=== PATIENT | male | born 1950 | race Caucasian/White ===

== ENCOUNTER 2023-05-23 07:54 | Inpatient (IN) ==
[~2023-05-23 07:54] MED LIST: ceFAZolin 2000MG 2,000 MG/15 ML SYR IV SCH
--- NOTE | 2023-05-23 08:21 | Emergency Department Note ---
ED Provider Note History of Present Illness Chief Complaint: Leg Injury/Pain Stated Complaint: L LEG PAIN,RECENT SURG Time Seen by Provider: 05/23/23 08:02 Source: patient Mode of arrival: ambulatory Limitations: no limitations This patient is a 72-year-old male who presents to the emergency department for evaluation of left leg pain. Patient reports that he has had progressively worsening pain in the left leg. He has a history of peripheral arterial disease. He had an angiogram done by Dr. Baker last week. He saw Dr. Guerrero yesterday and they discussed scheduling him for surgery but he was told that in the meantime, if his pain worsens he should come to the ER immediately. He states that since the appointment yesterday, his pain has been worsening. He has severe pain whenever he walks or tries to do anything. Pain is throughout the entire left leg. He denies chest pain or shortness of breath. Home Medications Medication Instructions Recorded Confirmed Type Ca 600 mg-D3 20 mcg-mag oxide 50 1 tab PO 1XD 04/11/19 05/22/23 History ai-Jr-rbunzn-manganese-boron tablet (Calcium 600-D3 Plus (mag-zinc)) aspirin 81 mg tablet 81 mg PO DAILY 04/11/19 05/22/23 History hydrochlorothiazide 12.5 mg tablet 12.5 mg PO DAILY 04/11/19 05/23/23 History multivitamin (Daily Multiple 1 tab PO DAILY 04/11/19 05/22/23 History tablet) nifedipine 90 mg tablet,extended 90 mg PO DAILY 04/11/19 05/23/23 History release 24 hr omeprazole 20 mg capsule,delayed 20 mg PO DAILY 04/11/19 05/23/23 History release atorvastatin 10 mg tablet 0 mg PO QPM 11/08/21 05/23/23 History lisinopril 40 mg tablet 40 mg PO DAILY 05/23/22 05/23/23 History coenzyme Q10 100 mg capsule 100 mg PO BID 01/04/23 05/22/23 History alfuzosin 10 mg tablet,extended See Rx Instructions .Route 02/28/23 05/23/23 Rx release 24 hr .COMPLEX #90 tabs atenolol 50 mg tablet 50 mg PO DAILY #90 tabs 05/22/23 05/23/23 Rx fnbrdkca-ojf- 250 mg-dha 90 1 cap PO DAILY 05/22/23 05/22/23 History mg-epa 160 xk-rorv-rzho-zeax capsule (Ocuvite Adult 50 Plus) clopidogrel 75 mg tablet 0 mg PO DAILY 05/23/23 05/23/23 History Allergies Allergy/AdvReac Type Severity Reaction Status Date / Time BRETT Inhibitors Allergy Unknown Unknown Verified 05/22/23 09:53 bisoprolol Allergy Unknown Unknown Verified 05/22/23 09:53 hydrochlorothiazide Allergy Unknown Unknown Verified 05/22/23 09:53 Sulfa (Sulfonamide Allergy Unknown Unknown Verified 05/22/23 09:53 Antibiotics) furosemide [From Lasix] Allergy Unknown Verified 05/22/23 09:53 ezetimibe [From Zetia] AdvReac Intermediate Unknown Verified 05/22/23 09:53 fosinopril AdvReac Unknown GI UPSET Verified 05/22/23 09:53 oxycodone AdvReac Unknown FEELS Verified 05/22/23 09:53 STRANGE MONOPRIL-GI Allergy Unknown Unknown Uncoded 05/22/23 09:53 UPSET;OXYCODONE-"FEELS STRANGE" THIAZIDE Allergy Unknown Unknown Uncoded 05/22/23 09:53 Past Med/Surg History Medical History Carotid artery disease BPH with obstruction/lower urinary tract symptoms Presence of bare metal stent in left circumflex coronary artery Dyslipidemia Hypertension PAD (peripheral artery disease) CAD (coronary artery disease) Surgical History H/O knee surgery Family History Other Coronary heart disease Diabetes Hypertension Social History Smoking Status: Former smoker Tobacco Type: Cigarettes Second Hand Exposure: No; Do You Dip or Chew Tobacco: No; Hx Alcohol Use: Yes Alcohol type: beer Hx Substance Use: No Preferred Language: Yi Communication Ability: Effective Firmware Developer Required: No Beliefs That Will Affect Care: None marital status: Current Living Situation: Spouse current occupational status: retired Feels Safe at Home: Yes Physical Exam Vital Signs Vital Signs - 24 hr 05/23/23 07:57 05/23/23 08:25 05/23/23 08:45 Temperature 36.6 C Temperature Source Temporal Artery Scan Pulse Rate 56 L 54 L Pulse Rate [Apical] 50 L Pulse Rhythm [Apical] Regular Pulse Strength [Apical] Respiratory Rate 18 16 Respiratory Effort / Characteristics Non-Labored Spontaneous Respiratory Depth Normal Respiratory Pattern Blood Pressure 138/75 Blood Pressure [Left Arm] Blood Pressure [Right Arm] 144/75 H Blood Pressure Mean 96 Blood Pressure Mean [Left Arm] Blood Pressure Mean [Right Arm] 98 Blood Pressure Position [Left Arm] Pulse Oximetry 96 95 Oxygen Delivery Method Room Air Sepsis Recent Fever Within 48 Hours No Sepsis New/Unexplained Change in Mental Status N/A Sepsis Action Taken by Nursing No Action Required 05/23/23 10:00 05/23/23 12:10 05/23/23 12:27 Temperature 36.4 C L Temperature Source Oral Pulse Rate Pulse Rate [Apical] 44 L 50 L Pulse Rhythm [Apical] Regular Pulse Strength [Apical] Normal Respiratory Rate 18 18 Respiratory Effort / Characteristics Non-Labored Spontaneous Non-Labored Spontaneous Respiratory Depth Normal Normal Respiratory Pattern Regular Regular Blood Pressure Blood Pressure [Left Arm] 159/78 H Blood Pressure [Right Arm] Blood Pressure Mean Blood Pressure Mean [Left Arm] 105 Blood Pressure Mean [Right Arm] Blood Pressure Position [Left Arm] Semi-fowlers Pulse Oximetry 96 94 Oxygen Delivery Method Room Air Room Air Room Air Sepsis Recent Fever Within 48 Hours Sepsis New/Unexplained Change in Mental Status Sepsis Action Taken by Nursing VITALS: Vitals are noted on the nurse's note and reviewed by myself. GENERAL: This is a 72-year-old male, in no acute distress, well-developed well- nourished. HEART: Regular rate and rhythm without murmurs gallops or rubs. LUNGS: Clear to auscultation bilaterally without wheezes, rales or rhonchi. EXTREMITIES: Left foot is dusky compared to the right. Delayed capillary refill. Dorsalis pedis pulse is not palpable on exam, faint but palpable posterior tibial pulse. NEURO: Patient was alert and oriented to person place and time. Distal sensation intact. Course Administered Medications Cefazolin Sodium (Ancef 2000mg) 2,000 mg in 15 mls @ 3.75 mls/min IV PREOP JUMA; Protocol Stop: 05/23/23 18:00 Last Admin: 05/23/23 13:33 Dose: 3.75 mls/min Documented By: SMI Discontinued Medications Cefazolin Sodium (Cefazolin 330 Mg/Ml 1 Gm Vial) Confirm Administered Dose 990 mg .ROUTE .STK-MED ONE Stop: 05/23/23 12:44 Last Admin: 05/23/23 13:33 Dose: 990 mg Documented By: GRICEL Medical Decision Making Differential Diagnosis Differential diagnosis includes leg ischemia, claudication, DVT, superficial thrombosis, among others. Home Medications was personally reviewed by me Laboratory Data Attestation: I reviewed the patient's lab results. 05/23/23 08:32 05/23/23 09:46 Lab Results 05/23/23 05/23/23 05/23/23 Range/Units 08:26 08:30 08:32 WBC 7.92 (4.8-10.8) K/ul RBC 4.48 L (4.70-6.10) M/uL Hgb 14.6 (14.0-18.0) g/dl Hct 43.6 (42.0-52.0) % MCV 97.3 (80.0-100.0) fL MCH 32.6 (25.0-34.0) pg MCHC 33.5 (32.0-36.0) g/dL RDW Std Deviation 50.7 H (36.4-46.3) fL RDW Coeff of [place] 14.1 (11.5-14.5) % Plt Count 317 (130-400) K/uL MPV 9.9 (9.4-12.4) fL Immature Gran % (Auto) 0.6 % Neut % (Auto) 62.1 % Lymph % (Auto) 22.3 % Pershing % (Auto) 6.9 % Eos % (Auto) 6.6 % Baso % (Auto) 1.5 % Neut # (Auto) 4.91 (1.40-6.50) K/uL Lymph # (Auto) 1.77 (1.20-3.40) K/uL Pershing # (Auto) 0.55 (0.11-0.59) K/uL Eos # (Auto) 0.52 H (0.00-0.50) K/uL Baso # (Auto) 0.12 (0.00-0.20) K/uL Immature Gran # (Auto) 0.05 (0.01-0.20) K/uL PT Cancelled INR Cancelled APTT Cancelled PTT Ratio Cancelled Sodium 136 (136-145) mmol/L Potassium TNP Chloride 102 (98-107) mmol/L Carbon Dioxide 30 (21-32) mmol/L Anion Gap 4 (3-11) BUN 13 (6-23) mg/dl Creatinine 0.99 (0.6-1.4) mg/dl Est Cr Clr Drug Dosing 72.9 ml/min Est GFR ( Amer) 87.2 ml/min Est GFR (Non-Af Amer) 75.2 ml/min BUN/Creatinine Ratio 13.1 (10-20) Glucose 107 H (70-99(Fasting)) mg/dl Calcium 9.7 (8.6-10.3) mg/dl Total Bilirubin 1.0 (0.2-1.0) mg/dl AST TNP ALT 14 (7-52) U/L Alkaline Phosphatase 65 (34-104) U/L Total Protein 7.3 (6.0-8.3) gm/dl Albumin 4.3 (3.4-5.0) gm/dl Globulin 3.0 (2.5-4.0) gm/dl Albumin/Globulin Ratio 1.4 (0.9-2) Urine Color Yellow Urine Appearance Clear (Clear) Urine pH 7.5 (4.5-7.5) Ur Specific [place] 1.014 (1.000-1.030) Urine Protein Negative (Negative) Urine Glucose (UA) Negative (Negative) Urine Ketones Negative (Negative) Urine Blood Negative (Negative) Urine Nitrite Negative (Negative) Urine Bilirubin Negative (Negative) Urine Urobilinogen Negative (Negative) Ur Leukocyte Esterase Negative (Negative) Blood Type O Positive Antibody Screen NEGATIVE 05/23/23 Range/Units 09:46 WBC (4.8-10.8) K/ul RBC (4.70-6.10) M/uL Hgb (14.0-18.0) g/dl Hct (42.0-52.0) % MCV (80.0-100.0) fL MCH (25.0-34.0) pg MCHC (32.0-36.0) g/dL RDW Std Deviation (36.4-46.3) fL RDW Coeff of [place]ul[place] (11.5-14.5) % Plt Count (130-400) K/uL MPV (9.4-12.4) fL Immature Gran % (Auto) % Neut % (Auto) % Lymph % (Auto) % [place]hing % (Auto) % Eos % (Auto) % Baso % (Auto) % Neut # (Auto) (1.40-6.50) K/uL Lymph # (Auto) (1.20-3.40) K/uL [place]hing # (Auto) (0.11-0.59) K/uL Eos # (Auto) (0.00-0.50) K/uL Baso # (Auto) (0.00-0.20) K/uL Immature Gran # (Auto) (0.01-0.20) K/uL PT 11.1 INR 1.0 APTT 28.2 PTT Ratio 1.0 Sodium (136-145) mmol/L Potassium 4.1 Chloride (98-107) mmol/L Carbon Dioxide (21-32) mmol/L Anion Gap (3-11) BUN (6-23) mg/dl Creatinine (0.6-1.4) mg/dl Est Cr Clr Drug Dosing ml/min Est GFR ( Amer) ml/min Est GFR (Non-Af Amer) ml/min BUN/Creatinine Ratio (10-20) Glucose (70-99(Fasting)) mg/dl Calcium (8.6-10.3) mg/dl Total Bilirubin (0.2-1.0) mg/dl AST 15 ALT (7-52) U/L Alkaline Phosphatase (34-104) U/L Total Protein (6.0-8.3) gm/dl Albumin (3.4-5.0) gm/dl Globulin (2.5-4.0) gm/dl Albumin/Globulin Ratio (0.9-2) Urine Color Urine Appearance (Clear) Urine pH (4.5-7.5) Ur Specific [place] (1.000-1.030) Urine Protein (Negative) Urine Glucose (UA) (Negative) Urine Ketones (Negative) Urine Blood (Negative) Urine Nitrite (Negative) Urine Bilirubin (Negative) Urine Urobilinogen (Negative) Ur Leukocyte Esterase (Negative) Blood Type Antibody Screen Imaging Data Attestation: I personally reviewed and interpreted this imaging study as follows: Radiologist's Impression: Chest X-Ray 05/23/23 08:16 XR chest 1V portable CLINICAL HISTORY: preop TECHNIQUE: Single frontal radiograph of the chest was obtained. Comparison: None available at the time of this dictation. FINDINGS: No lines and tubes are seen. Calcified aortic knob is seen. The lungs are clear. No evidence of pleural effusion or pneumothorax. IMPRESSION: No acute chest disease. ACT 112: Negative or not required by law. Electronically signed by: Nathanael Griffin M.D. 05/23/2023 8:36 AM ECG Data Attestation: I personally reviewed and interpreted this ECG as follows: Indication: + other Rate (beats per minute): 50 Rhythm: + sinus bradycardia ECG Campo: + Normal ECG ST segments: + Normal ST segments ECG Findings: + Other (low voltage QRS) Change: no significant change MDM Narrative This patient is a 72-year-old male who presents to the emergency department for evaluation of worsening left leg pain and claudication. Patient has been evaluated as an outpatient and worked up for peripheral arterial disease/limb ischemia. Due to issues with insurance preauthorization, he was sent to the ED today so he can be admitted for surgery by Dr. Guerrero. Charge nurse did speak with Dr. Guerrero who requested preoperative testing be performed and that no medications be given. Work-up was ordered and performed in the ER. Patient was then taken to the OR by Dr. Guerrero for further management. Impression Ischemia of left lower extremity Discharge Plan Visit Data Chief Complaint: Leg Injury/Pain Stated Complaint: L LEG PAIN,RECENT SURG ED Provider: Raymond Fisher ED Midlevel Provider: Jess Chavez Discharge Problem: Ischemia of left lower extremity Discharge Instructions Interventions: ED Discharge Assessment Last Done: 05/23/23 12:10
--- NOTE | 2023-05-23 08:37 | XRay Report ---
XR chest 1V portable CLINICAL HISTORY: preop TECHNIQUE: Single frontal radiograph of the chest was obtained. Comparison: None available at the time of this dictation. FINDINGS: No lines and tubes are seen. Calcified aortic knob is seen. The lungs are clear. No evidence of pleur al effusion or pneumothorax. IMPRESSION: No acute chest disease. ACT 112: Negative or not required by law. Electronically signed by: Nathanael Griffin M.D. 05/23/2023 8:36 AM
[2023-05-23 08:53] LABS: Appearance Urine Clear (Clear); Bilirubin Urine Negative (Negative); Blood Urine Negative (Negative); Color Urine Yellow; Glucose Urine UA Negative (Negative); Ketones Urine Negative (Negative); Leukocyte Esterase Urine Negative (Negative); Nitrite Urine Negative (Negative); Protein Urine Negative (Negative); Specific Gravity Urine 1.014 (1.000-1.030); Urobilinogen Urine Negative (Negative); pH Urine 7.5 (4.5-7.5)
[2023-05-23 08:57] LABS: Basophils # (auto) 0.12 K/uL (0.00-0.20); Basophils % (auto) 1.5 %; Eosinophils # (auto) 0.52 K/uL (0.00-0.50); Eosinophils % (auto) 6.6 %; Hematocrit (blood only) 43.6 % (42.0-52.0); Hemoglobin 14.6 g/dl (14.0-18.0); Immature Granulocytes # (auto) 0.05 K/uL (0.01-0.20); Immature Granulocytes % (auto) 0.6 %; Lymphocytes # (auto) 1.77 K/uL (1.20-3.40); Lymphocytes % (auto) 22.3 %; Mean Corpuscular Hemoglobin 32.6 pg (25.0-34.0); Mean Corpuscular Hgb Conc 33.5 g/dL (32.0-36.0); Mean Corpuscular Volume 97.3 fL (80.0-100.0); Mean Platelet Volume 9.9 fL (9.4-12.4); Monocytes # (auto) 0.55 K/uL (0.11-0.59); Monocytes % (auto) 6.9 %; Neutrophils # (auto) 4.91 K/uL (1.40-6.50); Neutrophils % (auto) 62.1 %; Platelet Count 317 K/uL (130-400); RDW Coefficient of Variation 14.1 % (11.5-14.5); RDW Standard Deviation 50.7 fL (36.4-46.3); Red Blood Count 4.48 M/uL (4.70-6.10); White Blood Count 7.92 K/ul (4.8-10.8)
[2023-05-23 09:17] LABS: Alanine Aminotransferase 14 U/L (7-52); Albumin Globulin Ratio 1.4 (0.9-2); Albumin Level 4.3 gm/dl (3.4-5.0); Alkaline Phosphatase 65 U/L (34-104); Anion Gap 4 (3-11); BUN Creatinine Ratio 13.1 (10-20); Blood Urea Nitrogen 13 mg/dl (6-23); Calcium 9.7 mg/dl (8.6-10.3); Carbon Dioxide 30 mmol/L (21-32); Chloride 102 mmol/L (98-107); Creatinine Clr Calc Pharmacy 72.9 ml/min; Est GFR (African American) 87.2 ml/min; Est GFR (Non-African American) 75.2 ml/min; Glucose 107 mg/dl (70-99(Fasting)); Sodium 136 mmol/L (136-145); Total Protein 7.3 gm/dl (6.0-8.3)
--- NOTE | 2023-05-23 09:26 | History & Physical Bridge Note ---
Date of Service May 23, 2023 History & Physical Bridge Note I have examined the patient, reviewed the History & Physical and in the interval since the performance of the History & Physical I have noted the following changes of clinical significance: no changes noted
--- NOTE | 2023-05-23 09:26 | History & Physical Report ---
Date of Service May 23, 2023 History of Present Illness Primary Care Provider: Leo Ahmadi MD Chief Complaint rm# 6 here for consult for foreign object in right femoral artery after intervention Reason for Consultation New onset left leg claudication severe History of Present Illness I had the pleasure of seeing Mr. Romero today for evaluation of his left leg claudication. As you know he is a 72-year-old gentleman who had intervention of his right lower extremity. Subsequent to that he developed new onset claudication at less than 50 feet of his left calf. He underwent another arteriogram of his left lower extremity which showed a significant narrowing of his left common femoral artery. Angio-Seal plug was used at the intervention which involved entrance of his left common femoral artery. He did state that he had bruising present in the left thigh post procedure. Review of Systems 10 systems reviewed.. Other than the HPI there were no positive findings Physical Exam Vitals & Measurements Input and Output - Last 24 hours (Last 8 hours) No I/O Data Found: On exam he is awake alert oriented x3. He is in no apparent distress at rest. His blood pressure is 146/68. Radials and carotids are +2 bilaterally. Lungs are clear. Heart had a RRR. Abdomen is benign. Femorals are +2 bilaterally. There is pedal pulses palpated in the right lower extremity cannot appreciate pedal pulse in the left lower extremity. The right lower extremity had normal capillary refill. Capillary refill the left foot is slightly decreased. Left foot is cooler than the right. Neurologic exam is grossly intact motor and sensory function. 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 Assessment/Plan 1. Atherosclerosis of [place] arteries of extremities with rest pain, left leg At this point recommended surgical intervention for repairing the left common femoral artery. Patient understood the risks options benefits and agreed to have this procedure. Thank you very much for letting us participate in the care of this patient. Sincerely, Colleen Guerrero MD Problem List/Past Medical History Ongoing AAA (abdominal aortic aneurysm) (atherosclerosis) BPH with urinary obstruction CAD Claudication Colon polyp Erosive gastropathy GERD HTN (hypertension) Hyperlipidemia Impaired fasting glucose PVD (peripheral vascular disease) Squamous cell carcinoma in situ Historical ETOH abuse LFT's abnormal Panic attacks Procedure/Surgical History Angiocardiography (05/01/2023) Lithotripsy (01/27/2023) Other (01/27/2023) Shave biopsy and cauterization of skin (02/08/2021) Colonoscopy (12/17/2019) Duplex scan of lower limb arteries (02/22/2019) Upper GI endoscopy (11/09/2017) CT angiography-Abdomen and Pelvis with Bilateral lower extremity runoff (04/27/2016) Colonoscopy (11/07/2014) Hx of knee surgery (01/21/2013) Colonoscopy (10/08/2008) Right Knee Surgery = ACL Replacement Heart Stent Excision of pilonidal sinus Medications Home alfuzosin(alfuzosin 10 mg oral tablet, extended release), 10 mg= 1 tab, PO, Daily aspirin(aspirin 81 mg oral enteric coated tablet), 81 mg= 1 tab, PO, Daily atenolol(atenolol 50 mg oral tablet), 50 mg= 1 tab, PO, Daily atorvastatin(atorvastatin 10 mg oral tablet), See Instructions calcium and vitamin D combination(calcium (as carbonate)-vitamin D 600 mg-400 intl units oral tablet), See Instructions chondroitin/glucosamine/methylsulfonylmethane(Glucosamine & Chondroitin with MSM), 2 tab, PO, Daily clopidogrel(Plavix 75 mg oral tablet), 75 mg= 1 tab, PO, Daily hydroCHLOROthiazide(hydroCHLOROthiazide 12.5 mg oral tablet), 12.5 mg= 1 tab, PO, Daily, 3 refills lisinopril(lisinopril 40 mg oral tablet), See Instructions, 3 refills LORazepam(LORazepam 0.5 mg oral tablet), 0.5 mg= 1 tab, PO, Daily, PRN multivitamin(Multiple Vitamins oral tablet), 1 tab, PO, Daily multivitamin with minerals(Ocuvite oral tablet), 1 tab, PO, Daily NIFEdipine(NIFEdipine (Eqv-Procardia XL) 90 mg oral tablet, extended release), See Instructions omega-3 polyunsaturated fatty acids-ubiquinone(CoQmax [place] 100 mg oral capsule) omeprazole(omeprazole 20 mg oral delayed release tablet), 20 mg, PO, bid, 3 refills Allergies Lasix dehydration Monopril GI upset Zantac diarrhea Zetia joint pain Social History Smoking Status Never smoked cigarettes Alcohol - Low Risk Exercise - Regular exercise Exercise type:Walking, biking Tobacco - Low Risk Family History Diabetes: Mother and Sister. Heart attack: Brother. Heart disease: Mother, Father and Brother. Kidney disease: Brother. Throat cancer..: Sister. Health Status Family Member(s) Immunizations Vaccine Date Status influenza virus vaccine, inactivated 05/04/2023 Given influenza virus vaccine, inactivated 05/20/2022 Given SARS-CoV-2 mRNA (Pfizer 12+) bivalent 05/03/2022 Recorded Comments : 2022-05-20: Historical information-source unspecified pneumococcal 23-valent vaccine 06/10/2021 Given SARS-CoV-2 (COVID-19) mRNA BNT-162b2 vax 05/14/2021 Recorded Comments : 2022-05-20: Historical information-source unspecified SARS-CoV-2 (COVID-19) mRNA BNT-162b2 vax 11/05/2020 Recorded Comments : 2022-05-20: Historical information-source unspecified SARS-CoV-2 (COVID-19) mRNA BNT-162b2 vax 10/15/2020 Recorded Comments : 2022-05-20: Historical information-source unspecified influenza virus vaccine, inactivated 04/14/2020 Given influenza virus vaccine, inactivated 05/02/2019 Given zoster vaccine, inactivated 05/17/2018 Recorded influenza virus vaccine, inactivated 04/24/2018 Given zoster vaccine, inactivated 02/24/2018 Recorded influenza virus vaccine, inactivated 05/25/2017 Given influenza virus vaccine, inactivated 05/16/2016 Given pneumococcal 13-valent vaccine 06/24/2015 Given influenza virus vaccine, inactivated 05/05/2015 Given tetanus/diphtheria/pertuss, acel (Tdap) 06/23/2014 Given pneumococcal 23-valent vaccine 06/23/2014 Given influenza virus vaccine, inactivated 04/09/2014 Given influenza virus vaccine, inactivated 04/22/2013 Given influenza virus vaccine, inactivated 04/27/2012 Given influenza virus vaccine, H1N1 07/25/2009 Recorded Comments : 2022-05-20: Historical information-source unspecified tetanus toxoids-diphtheria, Td (Adult) 03/03/2004 Recorded tetanus toxoids-diphtheria, Td (Adult) 02/02/2004 Recorded tetanus toxoids-diphtheria, Td (Adult) 03/25/1996 Recorded Comments : 2022-05-20: Historical information-source unspecified Signature Line Electronic Signature on File Mc Guerrero MD Author Signature Dt/Tm: 05/22/2023 03:19 PM [employer] Dynamics Ax Developer Tyson Hernandez [facility] [place] [address], [address] [place] [address] EJS Result Type: .Outpt Ltr Date of Service: May 22, 2023 15:15 EST Authorization Status: Final Subject: Consult Note Author or Import Date: MD Guerrero Eugene J on May 22, 2023 15:19 EST Verified By: MD Guerrero Eugene J on May 22, 2023 15:19 EST Encounter info: [id number], [place] [id number], Clinic, 05/22/2023 - Allergies Allergy/AdvReac Type Severity Reaction Status Date / Time BRETT Inhibitors Allergy Unknown Unknown Verified 05/22/23 09:53 bisoprolol Allergy Unknown Unknown Verified 05/22/23 09:53 hydrochlorothiazide Allergy Unknown Unknown Verified 05/22/23 09:53 Sulfa (Sulfonamide Allergy Unknown Unknown Verified 05/22/23 09:53 Antibiotics) furosemide [From Lasix] Allergy Unknown Verified 05/22/23 09:53 ezetimibe [From Zetia] AdvReac Intermediate Unknown Verified 05/22/23 09:53 fosinopril AdvReac Unknown GI UPSET Verified 05/22/23 09:53 oxycodone AdvReac Unknown FEELS Verified 05/22/23 09:53 STRANGE MONOPRIL-GI Allergy Unknown Unknown Uncoded 05/22/23 09:53 UPSET;OXYCODONE-"FEELS STRANGE" THIAZIDE Allergy Unknown Unknown Uncoded 05/22/23 09:53 Home Medications Medication Instructions Recorded Confirmed Type Ca 600 mg-D3 20 mcg-mag oxide 50 1 tab PO 1XD 04/11/19 05/22/23 History md-Jt-tvxamz-manganese-boron tablet (Calcium 600-D3 Plus (mag-zinc)) aspirin 81 mg tablet 81 mg PO DAILY 04/11/19 05/22/23 History hydrochlorothiazide 12.5 mg tablet 12.5 mg PO DAILY 04/11/19 05/22/23 History multivitamin (Daily Multiple 1 tab PO DAILY 04/11/19 05/22/23 History tablet) nifedipine 90 mg tablet,extended 90 mg PO DAILY 04/11/19 05/22/23 History release 24 hr omeprazole 20 mg capsule,delayed 20 mg PO DAILY 04/11/19 05/22/23 History release atorvastatin 10 mg tablet 5 mg PO QPM 11/08/21 05/22/23 History lisinopril 40 mg tablet 40 mg PO DAILY 05/23/22 05/22/23 History coenzyme Q10 100 mg capsule 100 mg PO BID 01/04/23 05/22/23 History clopidogrel 75 mg tablet 75 mg PO DAILY #30 tabs 01/27/23 05/22/23 Rx alfuzosin 10 mg tablet,extended See Rx Instructions .Route 02/28/23 05/22/23 Rx release 24 hr .COMPLEX #90 tabs atenolol 50 mg tablet 50 mg PO DAILY #90 tabs 05/22/23 05/22/23 Rx vvyhzmjz-vbg-pymel3 250 mg-dha 90 1 cap PO DAILY 05/22/23 05/22/23 History mg-epa 160 wx-qpiq-vufz-zeax capsule (Ocuvite Adult 50 Plus) Past Med/Surg History Medical History Carotid artery disease BPH with obstruction/lower urinary tract symptoms Presence of bare metal stent in left circumflex coronary artery Dyslipidemia Hypertension PAD (peripheral artery disease) CAD (coronary artery disease) Surgical History H/O knee surgery Family History Other Coronary heart disease Diabetes Hypertension Social History Smoking Status: Former smoker Tobacco Type: Cigarettes Second Hand Exposure: No; Do You Dip or Chew Tobacco: No; Hx Alcohol Use: Yes Alcohol type: beer Hx Substance Use: No Preferred Language: Dutch Communication Ability: Effective Treadle Cut Off Saw Operator Required: No Beliefs That Will Affect Care: None marital status: Current Living Situation: Spouse current occupational status: retired Feels Safe at Home: Yes Results & Data Vital Signs (Past 12 Hours) Vital Signs Temp Pulse Pulse Resp BP BP Pulse Ox 05/23/23 08:45 50 L 16 144/75 H 95 05/23/23 08:25 54 L 05/23/23 07:57 36.6 C 56 L 18 138/75 96 O2 Del Method 05/23/23 08:45 Room Air 05/23/23 08:25 05/23/23 07:57
[2023-05-23 10:24] LABS: Potassium 4.1 mmol/L (3.5-5.1)
[2023-05-23 10:33] LABS: Partial Thromboplastin Time 28.2 Seconds (21.0-31.0); Prothrombin Time 11.1 Seconds (9.0-12.0)
--- NOTE | 2023-05-23 11:05 | Electrocardiogram Report ---
Test Reason : Blood Pressure : / mmHG Vent. Rate : 050 BPM Atrial Rate : 050 BPM P-R Int : 168 ms QRS Dur : 080 ms QT Int : 410 ms P-R-T Axes : -17 017 061 degrees QTc Int : 373 ms Sinus bradycardia Low voltage QRS Possible Old Septal infarct Abnormal ECG When compared with ECG of 04-FEB-2013 16:41, Borderline Criteria for Septal infarct is now Present Confirmed by Jb Morales ([id number]) on 05/23/2023 11:04:40 AM Referred By: REFERRED SELF Confirmed By:Jb Morales
--- NOTE | 2023-05-23 11:42 | Anesthesiology Consultation ---
Date of Service May 23, 2023 Assessment & Plan (1) Encounter for pre-operative examination: Chart Review Chart Review: Acceptable Risk for Surgery History Surgery Operation Date: 05/23/23 09:25 Proposed Procedures p Repair Left Common Femoral Artery - Mc Guerrero MD Height/Weight Height: 6 ft Weight: 89.3 kg Allergies Allergy/AdvReac Type Severity Reaction Status Date / Time BRETT Inhibitors Allergy Unknown Unknown Verified 05/22/23 09:53 bisoprolol Allergy Unknown Unknown Verified 05/22/23 09:53 hydrochlorothiazide Allergy Unknown Unknown Verified 05/22/23 09:53 Sulfa (Sulfonamide Allergy Unknown Unknown Verified 05/22/23 09:53 Antibiotics) furosemide [From Lasix] Allergy Unknown Verified 05/22/23 09:53 ezetimibe [From Zetia] AdvReac Intermediate Unknown Verified 05/22/23 09:53 fosinopril AdvReac Unknown GI UPSET Verified 05/22/23 09:53 oxycodone AdvReac Unknown FEELS Verified 05/22/23 09:53 STRANGE MONOPRIL-GI Allergy Unknown Unknown Uncoded 05/22/23 09:53 UPSET;OXYCODONE-"FEELS STRANGE" THIAZIDE Allergy Unknown Unknown Uncoded 05/22/23 09:53 Medications Home Medications Medication Instructions Recorded Confirmed Last Taken Ca 600 mg-D3 20 mcg-mag oxide 50 1 tab PO 1XD 04/11/19 05/22/23 04/30/23 vj-Vo-lqupgz-manganese-boron tablet (Calcium 600-D3 Plus (mag-zinc)) aspirin 81 mg tablet 81 mg PO DAILY 04/11/19 05/22/23 04/30/23 hydrochlorothiazide 12.5 mg tablet 12.5 mg PO DAILY 04/11/19 05/22/23 04/30/23 multivitamin (Daily Multiple 1 tab PO DAILY 04/11/19 05/22/23 04/30/23 tablet) nifedipine 90 mg tablet,extended 90 mg PO DAILY 04/11/19 05/22/23 04/30/23 release 24 hr omeprazole 20 mg capsule,delayed 20 mg PO DAILY 04/11/19 05/22/23 04/30/23 release atorvastatin 10 mg tablet 5 mg PO QPM 11/08/21 05/22/23 04/30/23 lisinopril 40 mg tablet 40 mg PO DAILY 05/23/22 05/22/23 04/30/23 coenzyme Q10 100 mg capsule 100 mg PO BID 01/04/23 05/22/23 04/30/23 clopidogrel 75 mg tablet 75 mg PO DAILY #30 tabs 01/27/23 05/22/23 05/18/23 alfuzosin 10 mg tablet,extended See Rx Instructions .Route 02/28/23 05/22/23 04/30/23 release 24 hr .COMPLEX #90 tabs atenolol 50 mg tablet 50 mg PO DAILY #90 tabs 05/22/23 05/22/23 Unknown cmwsbxam-upr-[id number] 250 mg-dha 90 1 cap PO DAILY 05/22/23 05/22/23 Unknown mg-epa 160 ne-ewra-iniz-zeax capsule (Ocuvite Adult 50 Plus) Past Medical History Medical History Carotid artery disease BPH with obstruction/lower urinary tract symptoms Presence of bare metal stent in left circumflex coronary artery Dyslipidemia Hypertension PAD (peripheral artery disease) CAD (coronary artery disease) Past Family History Family History Other Coronary heart disease Diabetes Hypertension Past Surgical History Surgical History H/O knee surgery Social History Smoking Status: Former smoker Do You Dip or Chew Tobacco: No Hx Alcohol Use: Yes Alcohol type: beer alcohol intake frequency: 0-2 drinks per day Hx Substance Use: No substance use type: does not use Physical Exam Vital Signs Last Vital Signs Temp 36.6 C 05/23/23 07:57 Pulse 44 L 05/23/23 10:00 Resp 18 05/23/23 10:00 BP 144/75 H 05/23/23 08:45 Pulse Ox 96 05/23/23 10:00 O2 Del Method Room Air 05/23/23 10:00 Testing Laboratory Results 05/23/23 08:32 05/23/23 09:46 PT 11.1 Seconds (9.0-12.0) 05/23/23 09:46 INR 1.0 (0.9-1.1) 05/23/23 09:46 APTT 28.2 Seconds (21.0-31.0) 05/23/23 09:46 Urine Color Yellow 05/23/23 08:30 Urine Appearance Clear (Clear) 05/23/23 08:30 Urine pH 7.5 (4.5-7.5) 05/23/23 08:30 Ur Specific [place] 1.014 (1.000-1.030) 05/23/23 08:30 Urine Protein Negative (Negative) 05/23/23 08:30 Urine Glucose (UA) Negative (Negative) 05/23/23 08:30 Urine Ketones Negative (Negative) 05/23/23 08:30 Urine Nitrite Negative (Negative) 05/23/23 08:30 Ur Leukocyte Esterase Negative (Negative) 05/23/23 08:30 Blood Type O Positive 05/23/23 08:26 Antibody Screen NEGATIVE 05/23/23 08:26 Laboratory Tests 12/04/20 05/23/23 05/23/23 00:00 08:32 08:32 Hgb 14.6 Plt Count 317 INR APTT Potassium Creatinine 0.99 Hemoglobin A1c 5.6 05/23/23 05/23/23 05/23/23 09:46 09:46 09:46 Hgb Plt Count INR 1.0 APTT 28.2 Potassium 4.1 Creatinine Hemoglobin A1c Electrocardiogram Date: 05/23/23 Findings: + SB @ (50) Echocardiogram Date: 11/01/21 EF: 60-65% LV Function: normal Other Findings: + LVH (mild) Valvular Disease: + no significant valvular disease
[2023-05-23] MEDS ORDERED: HEPARIN (PORCINE) 1000 UNIT/ML 10 ML (CATH LAB USE ONLY) ONE (12:43)
[2023-05-23] MEDS ORDERED: ceFAZolin 330 MG/ML 1 GM VIAL ONE (12:43)
[2023-05-23] MEDS ORDERED: LIDOCAINE 1% LOCAL 20 ML VIAL ONE (12:43)
[2023-05-23] MEDS ORDERED: BUPIVACAINE/EPINEPHRINE 0.5% MPF 1:200,000 30 ML VIAL ONE (12:43)
[2023-05-23] MEDS ORDERED: GELATIN SPONGE SZ 100 ONE (12:44)
[2023-05-23] MEDS ORDERED: THROMBIN FOR SOLN 20000 UNIT KIT ONE (12:44)
[2023-05-23] MEDS ORDERED: LACTATED RINGER'S 1,000 ML IV SCH (12:45)
[2023-05-23] MEDS ORDERED: ePHEDrine sulfate 50 MG/ML AMP IV PRN (12:49)
[2023-05-23] MEDS ORDERED: fentaNYL citrate PF 100 MCG/2 ML VIAL IV PRN (12:49)
[2023-05-23] MEDS ORDERED: ATROPINE SULFATE 0.1 MG/ML 10ML SYR IV PRN (12:49)
[2023-05-23] MEDS ORDERED: PROMETHAZINE HCL 12.5 MG in SODIUM CHLORIDE 0.9% 50 ML IV PRN (12:49)
[2023-05-23] MEDS ORDERED: fentaNYL citrate PF 100 MCG/2 ML VIAL ONE ×2 (12:50→16:06)
[2023-05-23] MEDS ORDERED: PROPOFOL IV EMULSION 10 MG/ML 20 ML VIAL IV ONE (12:50)
[2023-05-23] MEDS ORDERED: ROCURONIUM BROMIDE 10 MG/ML 5 ML VIAL IV ONE ×2 (12:50→14:27)
[2023-05-23] MEDS ORDERED: LIDOCAINE 2% 2 ML VIAL/AMP(20MG/ML) INFIL ONE (12:50)
[2023-05-23] MEDS ORDERED: ePHEDrine sulfate 50 MG/ML AMP ONE (15:20)
[2023-05-23] MEDS ORDERED: DEXAMETHASONE SOD INJ 4 MG/ML VIAL ONE (15:20)
[2023-05-23] MEDS ORDERED: HEPARIN SOD (PORCINE) 1000 UNIT/ML ONE (15:20)
[2023-05-23] MEDS ORDERED: PROTAMINE SULFATE 10 MG/ML 5 ML VIAL IV ONE (15:20)
[2023-05-23] MEDS ORDERED: ONDANSETRON INJ 2 MG/ML 2 ML VIAL ONE (15:20)
--- NOTE | 2023-05-23 16:07 | Operative Report ---
Post Operative Report Pre & Post Diagnosis Operation Date: 05/23/23 09:25 Pre-Op Diagnosis: Left Common Femoral Artery stenosis Post-Op Diagnosis: Left Common Femoral Artery stenosis I identified the patient and participated in the time-out.: Yes Procedure Operation Date: 05/23/23 09:25 Actual Procedures p Left Common Femoral Artery endarterectomy with bovine patch (Left) - Mc Guerrero MD Surgeon Mc Guerrero MD Web Analyst Giuseppe,PAC Estimated Blood Loss 425 Findings Consistent with Post-Op Diagnosis Specimens none Anesthesia Type General Complications none Disposition Accompanied Patient To Recovery: No Disposition: Recovery Room Indications This is a 72-year-old gentleman who developed sudden onset of claudication left lower extremity which developed after angio for his right lower extremity. The puncture site was closed with a Angio-Seal device. He underwent arteriography of the left lower extremity which showed a filling defect in the left common femoral artery and a very tight stenosis with surrounding thrombus. Repair was recommended. I have discussed the risks options and benefits of the procedure with the patient. The patient understands the risks options and benefits and agrees to the procedure. Description of Procedure The patient was taken the operating placed spine position. After general esthesia was accomplished the left leg was prepped draped in a sterile manner. The patient was identified and timeout was performed. Longitudinal groin incision was then made. This was carried down to where the common femoral artery was identified at the inguinal ligament. The dissection over the common femoral artery had a lot of inflammation present from the plug. We able to dissect out the common femoral artery as well as the superficial and profundofemoral arteries. The external iliac artery at the inguinal ligament was heavily calcified. Patient was heparinized at that time. We then placed a clamp on the distal external iliac artery just above the inguinal ligament and the profundofemoral artery and superficial femoral artery distally. We did arteriotomy in the common femoral artery which showed part of the Angio-Seal plug within the lumen of the artery with surrounding thrombus. This was all excised. There was a moderate amount of plaque present in the common femoral artery which was endarterectomized from the inguinal ligament down to the just above the bifurcation where nice breakoff point was accomplished. All loose plaque was then removed. Distally we used tacking stitches to tack the plaque to the arterial wall. We then closed the arteriotomy with a bovine patch in usual vascular fashion. There was a puncture in the back wall of the artery from most likely the arteriogram procedure which was closed with 6-0 Prolene's. Clamps and removed from the common femoral artery proximal distally. There were 3-4 areas of bleeding between his sutures were due to the thinness of the arterial wall. These were all repaired with interrupted 5-0 Prolene's. After that hemostasis was noted wound was irrigated with Ancef solution The wound was then closed with a running 2-0 Vicryl suture for the femoral sheath and a 3-0 Vicryl subcutaneous layer. [place] were used for the skin and a Prevena was used for the dressing.The patient left the operation room in satisfactory condition and tolerated the procedure well. All needle and sponge counts were correct at the end of the procedure. Kymberly Aceves Pac assisted due to lack of resident availability and was necessary for positioning, draping, retraction, wound closure deep layers, subcutaneous tissue, and skin closure and was necessary for assisting with the case. I attest to the content of the Intraoperative Record and any orders documented therein. Any exceptions are noted below.
--- NOTE | 2023-05-23 16:53 | Anesthesiology Progress Note ---
Date of Service May 23, 2023 Anesthesia Post Procedure Vital Signs Vital Signs: Temp Pulse Pulse Resp BP BP BP 05/23/23 16:30 60 15 127/63 05/23/23 16:20 62 16 119/61 119/61 05/23/23 16:13 36.6 C 62 14 114/64 114/64 05/23/23 12:27 36.4 C L 50 L 18 159/78 H 05/23/23 12:10 05/23/23 10:00 44 L 18 05/23/23 08:45 50 L 16 144/75 H 05/23/23 08:25 54 L 05/23/23 07:57 36.6 C 56 L 18 138/75 Pulse Ox O2 Del Method O2 Flow Rate 05/23/23 16:30 98 Oxymask 12 05/23/23 16:20 98 Oxymask 12 05/23/23 16:13 99 Oxymask 12 05/23/23 12:27 94 Room Air 05/23/23 12:10 Room Air 05/23/23 10:00 96 Room Air 05/23/23 08:45 95 Room Air 05/23/23 08:25 05/23/23 07:57 96 Pain Intensity Left Groin: Pain Intensity: 5 Transfer of Care Handoff Completed per policy Notes Mental Status: alert / awake / arousable Patient Amnestic to Procedure: Yes Nausea / Vomiting: adequately controlled Pain: adequately controlled Airway Patency, RR, SpO2: stable & adequate BP & HR: stable & adequate Hydration State: stable & adequate Anesthetic Complications: no major complications apparent and Pt Satisfied with anesthetic care Notes: pt c/o of chest pressure. obtained 12 lead ekg that was unremarkable. pt reports chest pressure that is relieved by deep inspiration and is resolving spontaneously. denies chest pain, nausea, radiation of symptoms to ex tremities/neck. low suspicion for cardiac origin of symptoms at this time.
[2023-05-23] MEDS ORDERED: HYDROCODONE/ACETAMOPHEN 5/325MG TAB PO PRN (17:56)
[2023-05-23] MEDS: LACTATED RINGER'S 1,000 ML IV SCH (18:17)
[2023-05-23 18:53] LABS: Hematocrit (blood only) 36.9 % (42.0-52.0); Hemoglobin 12.8 g/dl (14.0-18.0); Mean Corpuscular Hemoglobin 32.3 pg (25.0-34.0); Mean Corpuscular Hgb Conc 34.7 g/dL (32.0-36.0); Mean Corpuscular Volume 93.2 fL (80.0-100.0); Mean Platelet Volume 10.5 fL (9.4-12.4); Platelet Count 301 K/uL (130-400); RDW Coefficient of Variation 13.9 % (11.5-14.5); RDW Standard Deviation 48.1 fL (36.4-46.3); Red Blood Count 3.96 M/uL (4.70-6.10); White Blood Count 11.72 K/ul (4.8-10.8)
[2023-05-23 19:13] LABS: Basophils # (auto) 0.05 K/uL (0.00-0.20); Basophils % (auto) 0.4 %; Eosinophils # (auto) 0.04 K/uL (0.00-0.50); Eosinophils % (auto) 0.3 %; Immature Granulocytes # (auto) 0.11 K/uL (0.01-0.20); Immature Granulocytes % (auto) 0.9 %; Lymphocytes # (auto) 0.65 K/uL (1.20-3.40); Lymphocytes % (auto) 5.5 %; Monocytes # (auto) 0.15 K/uL (0.11-0.59); Monocytes % (auto) 1.3 %; Neutrophils # (auto) 10.72 K/uL (1.40-6.50); Neutrophils % (auto) 91.6 %
[2023-05-23] MEDS ORDERED: NON-FORMULARY MEDICATION (Coenzyme Q10 100 mg capsule) PO SCH (21:00)
[2023-05-23] MEDS: ATORVASTATIN 10 MG TAB PO SCH (21:08)
[2023-05-23] MEDS: ceFAZolin 2000MG 2,000 MG/15 ML SYR IV SCH (21:09)
[2023-05-24] MEDS: LACTATED RINGER'S 1,000 ML IV SCH ×2 (01:59→10:12)
[2023-05-24] MEDS: ceFAZolin 2000MG 2,000 MG/15 ML SYR IV SCH (05:41)
[2023-05-24 06:01] LABS: Basophils # (auto) 0.01 K/uL (0.00-0.20); Basophils % (auto) 0.1 %; Hematocrit (blood only) 33.5 % (42.0-52.0); Hemoglobin 11.1 g/dl (14.0-18.0); Immature Granulocytes # (auto) 0.07 K/uL (0.01-0.20); Immature Granulocytes % (auto) 0.7 %; Lymphocytes # (auto) 1.01 K/uL (1.20-3.40); Lymphocytes % (auto) 9.5 %; Mean Corpuscular Hemoglobin 31.8 pg (25.0-34.0); Mean Corpuscular Hgb Conc 33.1 g/dL (32.0-36.0); Mean Platelet Volume 10.2 fL (9.4-12.4); Monocytes # (auto) 0.47 K/uL (0.11-0.59); Monocytes % (auto) 4.4 %; Neutrophils # (auto) 9.03 K/uL (1.40-6.50); Neutrophils % (auto) 85.3 %; Platelet Count 282 K/uL (130-400); RDW Standard Deviation 49.3 fL (36.4-46.3); Red Blood Count 3.49 M/uL (4.70-6.10); White Blood Count 10.59 K/ul (4.8-10.8)
--- NOTE | 2023-05-24 08:12 | Electrocardiogram Report ---
Test Reason : Blood Pressure : / mmHG Vent. Rate : 061 BPM Atrial Rate : 061 BPM P-R Int : 162 ms QRS Dur : 088 ms QT Int : 438 ms P-R-T Axes : -11 021 065 degrees QTc Int : 440 ms Poor data quality, interpretation may be adversely affected Sinus rhythm with Premature atrial complexes Possible Old Anteroseptal infarct (cited on or before 23-MAY-2023) Abnormal ECG When compared with ECG of 23-MAY-2023 08:45, QT has lengthened Confirmed by Jb Morales ([id number]) on 05/24/2023 8:12:02 AM Referred By: REFERRED SELF Confirmed By:Jb Morales
[2023-05-24] MEDS: lisinopril 40 MG TAB PO SCH (08:39)
[2023-05-24] MEDS: ASPIRIN 81 MG ECTAB PO SCH (08:39)
[2023-05-24] MEDS: ATENOLOL 50 MG TABLET PO SCH (08:40)
[2023-05-24] MEDS: CLOPIDOGREL BISULFATE 75 MG TAB PO SCH (08:40)
[2023-05-24] MEDS: PANTOprazole 40 MG TAB PO SCH (08:40)
[2023-05-24] MEDS: hydroCHLOROthiazide 25 MG TAB PO SCH (08:40)
[2023-05-24] MEDS: NIFEdipine EXTENDED REL 30 MG TABCR PO SCH (08:41)
[2023-05-24] MEDS: TAMSULOSIN HCL 0.4 MG CAP PO SCH (08:41)
[2023-05-24] MEDS ORDERED: POLYETHYLENE (MIRALAX) 17 GM PACK PO PRN (13:54)
--- NOTE | 2023-05-24 14:06 | Surgery Progress Note ---
Date of Service May 24, 2023 Assessment & Plan (1) Ischemia of left lower extremity: Plan: Pt doing well s/p LLE common femoral endarterectomy with bovine patch. Taking PO well, feeling mildly constipated, will add colace and miralax PRN. Hgb 11 today, 14 preop. Hgb/Hct ordered by Dr Baker. Pt asymptomatic. VSS, pt active. Increase activity. Pt with questions regarding his procedure and his incisional vac. All questions answered. Pt ok for d/c from vascular surgery standpoint. Will see in office in 2 weeks for staple removal. Admission and Anticipated Discharge Date Admission Date: May 23, 2023 Subjective 72 yo m POD #1 after L common femoral endarterectomy with bovine patch, seen in f/u today. Pt states he is feeling a little tired, and is mildly constipated. Otherwise, his pain is under control and has been moving around the room and taking PO well. States his L foot feels significantly improved since surgery. No other new complaints. Review of Systems Review of Systems: All systems reviewed & are unremarkable except as noted in HPI & below Physical Exam Constitutional: WD/WN, vitals as above cooperative and comfortable; not in distress Cardiovascular: Vessels: posterior tibial pulses present (+1 LLE) and dorsalis pedis pulses present (Dopplerable LLE); + abnormal peripheral pulses Extremities: normal capillary refill Skin: + incision (L groin incision with preven a vac in place, working appropriately. ) Mild local soft edema, old ecchymosis noted Results & Data Vital Signs (Past 12 Hours) Vital Signs Temp Pulse Resp BP BP Pulse Ox O2 Del Method 05/24/23 09:00 Room Air 05/24/23 07:09 36.6 C 62 18 137/56 L 95 Room Air 05/24/23 02:10 36.5 C 69 16 143/70 H 94 Room Air
[2023-05-24 14:42] LABS: Hematocrit (blood only) 33.9 % (42.0-52.0); Hemoglobin 11.6 g/dl (14.0-18.0)
--- NOTE | 2023-05-24 16:57 | Cardiology Progress Note ---
Date of Service May 24, 2023 Assessment & Plan (1) PAD (peripheral artery disease): Plan: Post endarterectomy and patch repair of left LIQUOR BRIDGE OPERATOR stenosis post closure device Prior bilateral SFA endovascular intervention 2. Postop anemia 3. Coronary artery disease 4. Hypertension 5. Dyslipidemia Stable following LIQUOR BRIDGE OPERATOR endarterectomy yesterday. Distal left lower extremity appears well-perfused Pain reasonably controlled Repeat hemoglobin stable Continue to monitor overnight. Repeat hemoglobin in a.m. Assuming stable likely discharge tomorrow morning. Appreciate assistance from vascular surgery team. Follow-up with surgery to be arranged. Admission and Anticipated Discharge Date Admission Date: May 23, 2023 Subjective Seen this afternoon. Patient looks comfortable sitting up in chair. Pain reasonably controlled. Wound VAC in place. Reports some shortness of breath walking to bathroom. States leg downstream from surgical site feels different, warmer. Review of Systems Review of Systems: All systems reviewed & are unremarkable except as noted in HPI & below Physical Exam Physical Exam: General: Comfortable HEENT: Sclerae anicteric Lungs: Clear to auscultation bilaterally Cardiac: Regular rate and rhythm Vascular: 2+ radial, Left LIQUOR BRIDGE OPERATOR VAC in place. No surrounding erythema/induration. Left foot warm, intact capillary refill, diminished DP/PT 2+ right LIQUOR BRIDGE OPERATOR Abdomen: Soft, nontender Extremities: Well perfused, no peripheral edema Neuro: Nonfocal Psych: Alert orient x3, normal affect and mood Results & Data Vital Signs (Past 12 Hours) Vital Signs Temp Pulse Resp BP Pulse Ox O2 Del Method 05/24/23 15:27 97.5 F L 55 L 18 122/66 96 Room Air 05/24/23 09:00 Room Air 05/24/23 07:09 97.9 F 62 18 137/56 L 95 Room Air PG Care Time/CCT Total # of Minutes Spent Total Time Spent with Patient: Total time spent is greater than 50% in coordination of care (as documented) at patient's floor/unit and/or counseling patient: Coding Level of Care Code 66349 SUB INP/OBS CARE 3/50MIN Diagnoses PAD (peripheral artery disease) I73.9
[2023-05-24] MEDS: DOCUSATE SODIUM 100 MG CAP PO SCH (20:54)
[2023-05-24] MEDS: traMADol HCL 50 MG TABLET PO PRN (20:54)
[2023-05-24] MEDS: ATORVASTATIN 10 MG TAB PO SCH (20:54)
[2023-05-25] MEDS: traMADol HCL 50 MG TABLET PO PRN (05:51)
[2023-05-25] MEDS: DOCUSATE SODIUM 100 MG CAP PO SCH (08:14)
[2023-05-25] MEDS: TAMSULOSIN HCL 0.4 MG CAP PO SCH (08:15)
[2023-05-25] MEDS: ATENOLOL 50 MG TABLET PO SCH (08:15)
[2023-05-25] MEDS: ASPIRIN 81 MG ECTAB PO SCH (08:15)
[2023-05-25] MEDS: NIFEdipine EXTENDED REL 30 MG TABCR PO SCH (08:15)
[2023-05-25] MEDS: CLOPIDOGREL BISULFATE 75 MG TAB PO SCH (08:15)
[2023-05-25] MEDS: lisinopril 40 MG TAB PO SCH (08:16)
[2023-05-25] MEDS: hydroCHLOROthiazide 25 MG TAB PO SCH (08:16)
[2023-05-25] MEDS: PANTOprazole 40 MG TAB PO SCH (08:17)
--- NOTE | 2023-05-26 22:54 | Discharge Summary ---
Date of Service May 26, 2023 Admission HPI Per Admitting Provider Mr. Romero is a 72-year-old gentleman who had intervention of his right lower extremity. Subsequent to that he developed new onset claudication at less than 50 feet of his left calf. He underwent another arteriogram of his left lower extremity which showed a significant narrowing of his left common femoral artery. Angio-Seal plug was used at the intervention which involved entrance of his left common femoral artery. He did state that he had bruising present in the left thigh post procedure. Discharge Data Procedures Performed Operation Date: 05/23/23 09:25 Actual Procedures p Left Common Femoral Artery endarterectomy with bovine patch (Left) - Mc Guerrero MD Hospital Course (1) PAD (peripheral artery disease): Post endarterectomy and patch repair of left LOG CUTTER stenosis post closure device Prior bilateral SFA endovascular intervention 2. Postop anemia 3. Coronary artery disease 4. Hypertension 5. Dyslipidemia Patient underwent LT LOG CUTTER closure device removal/endarterectomy and patch repair by Dr. Guerrero on 05/23/2023. Procedure uncomplicated. Admitted to med/surg service for observation. Post op mild anemia with drop in Hb from 14.6 down to 11.6. On day of discharge up walking in halls. Incisional wound vac in place. Pain reasonably controlled on tramadol. Discharged to home on prior DAPT with ASA and clopidogrel. Will follow-up with Dr. Guerrero in 2 weeks for wound check. Follow-up Dr. Baker for repeat arterial duplex in June. Plan Home Medications Ca 600 mg-D3 20 mcg-mag oxide 50 ew-Ia-cgfryi-manganese-boron tablet (Calcium 600-D3 Plus (mag-zinc)) 1 tab PO 1XD 04/11/19 [History Confirmed 05/22/23] aspirin 81 mg tablet 81 mg PO DAILY 04/11/19 [History Confirmed 05/22/23] hydrochlorothiazide 12.5 mg tablet 12.5 mg PO DAILY 04/11/19 [History Confirmed 05/23/23] multivitamin (Daily Multiple tablet) 1 tab PO DAILY 04/11/19 [History Confirmed 05/22/23] nifedipine 90 mg tablet,extended release 24 hr 90 mg PO DAILY 04/11/19 [History Confirmed 05/23/23] omeprazole 20 mg capsule,delayed release 20 mg PO DAILY 04/11/19 [History Confirmed 05/23/23] atorvastatin 10 mg tablet 0 mg PO QPM 11/08/21 [History Confirmed 05/23/23] lisinopril 40 mg tablet 40 mg PO DAILY 05/23/22 [History Confirmed 05/23/23] coenzyme Q10 100 mg capsule 100 mg PO BID 01/04/23 [History Confirmed 05/22/23] alfuzosin 10 mg tablet,extended release 24 hr See Rx Instructions .Route .COMPLEX #90 tabs 02/28/23 [Rx Confirmed 05/23/23] atenolol 50 mg tablet 50 mg PO DAILY #90 tabs 05/22/23 [Rx Confirmed 05/23/23] ntrkakbj-snc- 250 mg-dha 90 mg-epa 160 ei-numc-bhyk-zeax capsule (Ocuvite Adult 50 Plus) 1 cap PO DAILY 05/22/23 [History Confirmed 05/22/23] clopidogrel 75 mg tablet 0 mg PO DAILY 05/23/23 [History Confirmed 05/23/23] docusate sodium 100 mg capsule 100 mg PO BID 30 days #60 caps 05/25/23 [Rx] polyethylene glycol 3350 17 gram oral powder packet (Miralax) 17 g PO DAILY PRN constipation 7 days #7 ea 05/25/23 [Rx] tramadol 50 mg tablet 50 mg PO Q6H PRN pain #20 tabs 05/25/23 [Rx] Coding Level of Care Code 13936 IN/OBS DISCH 30 MIN/LESS Diagnoses PAD (peripheral artery disease) I73.9
--- NOTE | 2023-05-30 20:36 | Coding Query ---
ANEMIA To promote full compliance with coding requirements relating to patient care, physician participation is requested in all cases of medical biller coder uncertainty. Please assist us with the question(s) below: Coding Question(s): The record reflects the following clinical findings: If these findings are indicative of anemia, please specify the known or suspected type by placing an "X" within the parenthesis (x). If other, please document type. Examples are: ( ) Acute blood loss anemia ( ) Acute Postoperative blood loss anemia ( ) Acute postoperative anemia due to dilutional fluids ( ) Chronic blood loss anemia ( ) Anemia of chronic disease Thank you Dianelys DODD
== END 2023-05-25 14:00 | disposition home or self-care (01) | DRG 254 ==
LOC: ED 07:54 → OR 12:10 → 3N 12:20 → OR 12:24

== ENCOUNTER 2023-06-03 05:10 | Inpatient (IN) ==
[2023-06-03 06:04] LABS: Appearance Urine Clear (Clear); Basophils # (auto) 0.04 K/uL (0.00-0.20); Basophils % (auto) 0.5 %; Bilirubin Urine Negative (Negative); Blood Urine Negative (Negative); Color Urine Yellow; Eosinophils # (auto) 0.02 K/uL (0.00-0.50); Eosinophils % (auto) 0.3 %; Glucose Urine UA Negative (Negative); Hematocrit (blood only) 34.2 % (42.0-52.0); Hemoglobin 11.8 g/dl (14.0-18.0); Immature Granulocytes # (auto) 0.09 K/uL (0.01-0.20); Immature Granulocytes % (auto) 1.1 %; Ketones Urine Trace (Negative); Leukocyte Esterase Urine Negative (Negative); Lymphocytes # (auto) 0.82 K/uL (1.20-3.40); Lymphocytes % (auto) 10.3 %; Mean Corpuscular Hemoglobin 32.3 pg (25.0-34.0); Mean Corpuscular Hgb Conc 34.5 g/dL (32.0-36.0); Mean Corpuscular Volume 93.7 fL (80.0-100.0); Monocytes % (auto) 10.1 %; Neutrophils # (auto) 6.18 K/uL (1.40-6.50); Neutrophils % (auto) 77.7 %; Nitrite Urine Negative (Negative); Platelet Count 312 K/uL (130-400); Protein Urine Negative (Negative); RDW Coefficient of Variation 13.9 % (11.5-14.5); RDW Standard Deviation 47.3 fL (36.4-46.3); Red Blood Count 3.65 M/uL (4.70-6.10); Specific Gravity Urine 1.017 (1.000-1.030); Urobilinogen Urine Negative (Negative); White Blood Count 7.95 K/ul (4.8-10.8)
[2023-06-03] MEDS ORDERED: KETOROLAC TROMETHAMINE 15 MG/ML VIAL IV STA (06:06)
[2023-06-03 06:21] LABS: Albumin Level 4.1 gm/dl (3.4-5.0); BUN Creatinine Ratio 11.4 (10-20); Bilirubin Direct 0.1 mg/dl (0-0.2); Bilirubin,Total 0.9 mg/dl (0.2-1.0); Calcium 9.3 mg/dl (8.6-10.3); Creatinine Clr Calc Pharmacy 82.1 ml/min; Est GFR (African American) 98.8 ml/min; Est GFR (Non-African American) 85.2 ml/min; Magnesium 1.6 mg/dl (1.7-2.4); Potassium 3.7 mmol/L (3.5-5.1); Total Protein 7.1 gm/dl (6.0-8.3)
[2023-06-03] MEDS ORDERED: MAGNESIUM SULFATE / D5W 1 GM/100 ML BAG IV STA (06:42)
[2023-06-03] MEDS ORDERED: ACETAMINOPHEN 1,000 MG/100 ML VIAL IV STA (06:58)
[2023-06-03] MEDS ORDERED: SODIUM CHLORIDE 0.9% 500 ML IV ONE (06:58)
[2023-06-03] MEDS ORDERED: IPRATROPIUM BROMIDE/ALBUTEROL respimat INH INH STA (06:58)
--- NOTE | 2023-06-03 07:04 | Emergency Department Note ---
Impression & Plan COVID-19, Myocarditis, Elevated troponin, Hyponatremia ED Provider Note NAME: JOANN BUTLER AGE: 72 SEX: M ARRIVES VIA: Walk-In INFORMANT: Patient ED PROVIDER(S): Triston Garrett MD CHIEF COMPLAINT: Covid, chest pain PLAN: Disposition: Admit MEDICAL DECISION MAKING: The patient is a pleasant 72-year-old gentleman with a past medical history of CAD, PAD, hypertension, hyperlipidemia who presents to emergency department via walk-in accompanied by his for evaluation of worsening cough, congestion and chest pain over the past several days where he felt an acute worsening yesterday with onset of constant left-sided chest pain that is worse when he breathes and coughs that has persisted. The patient ports he tested positive for COVID-19 on a home test yesterday. He denies nausea, vomiting or diarrhea. The patient is status post left FINISHER DENTURE closure device removal/endarterectomy and patch repair by Dr. Guerrero on 05/23. The patient is on aspirin and Plavix. Critical pathways ordered initially on arrival. On my evaluation the patient is fatigued appearing but no acute distress, afebrile blood pressure 140s/70s and vital signs otherwise stable. O2 saturation is 95% on room air. EKG does not demonstrate overt ST elevation or depression. Chest x-ray negative for acute cardiopulmonary process. WBC and platelets within normal limits. H/H is similar to recent values. Chemistry without metabolic acidosis. Sodium 129 in setting of decreased oral intake. Magnesium 1.6 with IV repletion provided. Lactic acid is within normal limits at 1.5. LFTs with AST mildly elevated 48, nonspecific. High-sensitivity troponin initially 7700. BNP is 878. Procalcitonin is undetectable. UA without evidence of infection. Patient's COVID-19 PCR confirms a positive infection. CTA of the chest was performed and within limitations of motion artifact no evidence of PE or acute consolidative process. Upon reevaluation the patient did report some improvement following gentle IV fluid hydration, Toradol, APAP, Combivent inhaler. Given negative CT of the chest and pattern of symptoms which are atypical and constant without overt ischemia on EKG suspect likely myocarditis. Aspirin ordered out of caution. Case was discussed with ID cardiology, Dr. Morales. Appreciate consultation recommendations. Agrees that troponin elevation and symptoms are not suggestive of ACS at this time and likely related to myocarditis in the setting of his acute COVID-19 infection. Agrees that heparin can be deferred at this time. Recommends continued supportive care and will need continued trending of his troponin and echocardiogram to assess his cardiac function. Patient is agreement with plan for admission. Case was discussed with Dr. Grant, [facility] hospitalist, who will evaluate the patient for admission. Triage Nursing notes reviewed and agree them. Prior/external medical records reviewed Vital Signs: reviewed Differential diagnosis: Cardiac ischemia, aortic dissection, pulmonary embolism, pneumothorax, pneumonia, pericarditis, myocarditis, esophageal rupture, GERD, cholecystitis, pancreatitis, musculoskeletal, as well as other pathologies. ER treatment provided: See below. Diagnostics interpreted by me: ECG: Sinus rhythm with marked sinus arrhythmia, 77 bpm, no ectopy, no overt ST elevation or depression, QTc 414, QRS 76. Artifact noted Cardiac Monitoring: An order for continuous cardiac monitoring was placed and demonstrated Sinus rhythm with marked sinus arrhythmia, 77 bpm, Laboratory studies: See below Imaging studies: See below Consultation(s): Case was discussed with Dr. Grant [facility] hospitalist, who will evaluate the patient for admission. HPI: The patient is a pleasant 72-year-old gentleman with a past medical history of CAD, PAD, hypertension, hyperlipidemia who presents to emergency department via walk-in accompanied by his for evaluation of worsening cough, congestion and chest pain over the past several days where he felt an acute worsening yesterday with onset of constant left-sided chest pain that is worse when he breathes and coughs that has persisted. The patient ports he tested positive for COVID-19 on a home test yesterday. He denies nausea, vomiting or diarrhea. The patient is status post left FINISHER DENTURE closure device removal/endarterectomy and patch repair by Dr. Guerrero on 05/23. The patient is on aspirin and Plavix. ROS: See above HPI for pertinent positives & negatives. A total of 10 systems reviewed and were otherwise negative. VITALS:See Below PHYSICAL EXAMINATION: GENERAL: Awake, alert, fatigued-appearing, in no distress HENT: Normocephalic, atraumatic. Oropharynx with dry mucous membranes and otherwise unremarkable. EYES: Normal conjunctiva. Sclera non-icteric. NECK: Supple. No nuchal rigidity. FROM. No JVD. RESPIRATORY: Intermittent wheezes of bilateral lung noble and otherwise clear to auscultation. CARDIAC: Regular rate, normal rhythm. Extremities warm and well perfused. Pulses equal. ABDOMEN: Soft, non-distended. No tenderness to palpation. No rebound or guarding. No masses. RECTAL: Deferred. MUSCULOSKELETAL: Chest examination reveals no tenderness. The back is symmetrical on inspection without obvious abnormality. There is no CVA tenderness to palpation. No joint edema. LOWER EXTREMITIES: Calves are equal size bilaterally and non-tender. No edema. No discoloration. NEURO: Normal sensorium. No sensory or motor deficits noted. SKIN: No rash or jaundice noted. ED COURSE: Critical Care: I have personally spent greater than 35 minutes of critical care time in the direct management of this patient. This includes bedside care, interpretation of diagnostic studies, and testing, discussion with consultants, patient, and family members, and other required patient management activities. This 35 minutes is in excess of all separately billable procedures. Triston Garrett MD Past Med/Surg History Medical History AAA (abdominal aortic aneurysm) Male erectile disorder of organic origin Former smoker Esophageal reflux Cerebrovascular disease Arterial insufficiency of lower extremity Carotid artery disease BPH with obstruction/lower urinary tract symptoms Presence of bare metal stent in left circumflex coronary artery Dyslipidemia Hypertension PAD (peripheral artery disease) CAD (coronary artery disease) Surgical History H/O knee surgery Family History Other Coronary heart disease Diabetes Hypertension Social History Smoking Status: Former smoker Tobacco Type: Cigarettes and Smokeless Tobacco (Dip or Chew) Second Hand Exposure: No; Do You Dip or Chew Tobacco: No; Tobacco Cessation Education Requested by Patient: No Hx Alcohol Use: Yes Alcohol type: beer Hx Substance Use: No Preferred Language: Moroccan Communication Ability: Effective Intake Clinician Required: No Beliefs That Will Affect Care: None marital status: Current Living Situation: Spouse current occupational status: retired Other Information That Helps Us Care for You: No Feels Safe at Home: Yes Safety Concerns: Feels Safe At This Time Assistive Devices: Glasses Allergies Allergies Allergy/AdvReac Type Severity Reaction Status Date / Time BRETT Inhibitors Allergy Unknown Unknown Verified 05/22/23 09:53 bisoprolol Allergy Unknown Unknown Verified 05/22/23 09:53 hydrochlorothiazide Allergy Unknown Unknown Verified 05/22/23 09:53 Sulfa (Sulfonamide Allergy Unknown Unknown Verified 05/22/23 09:53 Antibiotics) furosemide [From Lasix] Allergy Unknown Verified 05/22/23 09:53 ezetimibe [From Zetia] AdvReac Intermediate Unknown Verified 05/22/23 09:53 tramadol AdvReac Intermediate Nausea and Unverified 06/03/23 09:14 vomiting fosinopril AdvReac Unknown GI UPSET Verified 05/22/23 09:53 oxycodone AdvReac Unknown FEELS Verified 05/22/23 09:53 STRANGE MONOPRIL-GI Allergy Unknown Unknown Uncoded 05/22/23 09:53 UPSET;OXYCODONE-"FEELS STRANGE" THIAZIDE Allergy Unknown Unknown Uncoded 05/22/23 09:53 Home Meds Home Medications Medication Instructions Recorded Confirmed Ca 600 mg-D3 20 mcg-mag oxide 50 1 tab PO DAILY 04/11/19 06/03/23 vm-Qc-dmhphc-manganese-boron tablet (Calcium 600-D3 Plus (mag-zinc)) aspirin 81 mg tablet 81 mg PO DAILY 04/11/19 06/03/23 hydrochlorothiazide 12.5 mg tablet 12.5 mg PO DAILY 04/11/19 06/03/23 multivitamin (Daily Multiple 1 tab PO DAILY 04/11/19 06/03/23 tablet) nifedipine 90 mg tablet,extended 90 mg PO DAILY 04/11/19 06/03/23 release 24 hr omeprazole 20 mg capsule,delayed 20 mg PO BID 04/11/19 06/03/23 release atorvastatin 10 mg tablet 5 mg PO QPM 11/08/21 06/03/23 lisinopril 40 mg tablet 40 mg PO DAILY 05/23/22 06/03/23 coenzyme Q10 100 mg capsule 100 mg PO BID 01/04/23 06/03/23 ropjutot-trx- 250 mg-dha 90 1 cap PO DAILY 05/22/23 06/03/23 mg-epa 160 id-cwyo-okyn-zeax capsule (Ocuvite Adult 50 Plus) clopidogrel 75 mg tablet 75 mg PO DAILY 05/23/23 06/03/23 Glucosamine-Marcelo 1500/1200 2 tabs PO DAILY 06/03/23 06/03/23 flaxseed oil 1,000 mg capsule 1,000 mg PO DAILY 06/03/23 06/03/23 Previous Rx's Medication Instructions Recorded alfuzosin 10 mg tablet,extended See Rx Instructions .Route 02/28/23 release 24 hr .COMPLEX #90 tabs atenolol 50 mg tablet 50 mg PO DAILY #90 tabs 05/22/23 docusate sodium 100 mg capsule 100 mg PO BID 30 days #60 caps 05/25/23 Results & Data (ED) Vital Signs Vital Signs - 24 hr 06/03/23 05:14 06/03/23 05:51 06/03/23 07:11 Temperature 37.1 C Temperature Source Temporal Artery Scan Pulse Rate 87 72 Pulse Rate [Apical] 68 Pulse Rhythm Regular Pulse Rhythm [Apical] Pulse Strength Normal Pulse Strength [Apical] Respiratory Rate 20 18 Respiratory Effort / Characteristics Non-Labored Spontaneous Non-Labored Spontaneous Respiratory Depth Normal Normal Respiratory Pattern Blood Pressure 143/70 H Blood Pressure [Left Arm] 142/78 H Blood Pressure Mean 94 Blood Pressure Mean [Left Arm] 99 Blood Pressure Position Sitting Blood Pressure Position [Left Arm] Sitting Pulse Oximetry 96 95 Oxygen Delivery Method Room Air Room Air Sepsis Recent Fever Within 48 Hours No Sepsis New/Unexplained Change in Mental Status N/A Sepsis Action Taken by Nursing No Action Required 06/03/23 08:51 Temperature 37.3 C Temperature Source Oral Pulse Rate Pulse Rate [Apical] 70 Pulse Rhythm Pulse Rhythm [Apical] Regular Pulse Strength Pulse Strength [Apical] Normal Respiratory Rate 16 Respiratory Effort / Characteristics Non-Labored Spontaneous Respiratory Depth Normal Respiratory Pattern Regular Blood Pressure Blood Pressure [Left Arm] 139/85 Blood Pressure Mean Blood Pressure Mean [Left Arm] 103 Blood Pressure Position Blood Pressure Position [Left Arm] Right Lateral Pulse Oximetry 97 Oxygen Delivery Method Room Air Sepsis Recent Fever Within 48 Hours Sepsis New/Unexplained Change in Mental Status Sepsis Action Taken by Nursing Laboratory Data Attestation: I reviewed the patient's lab results. 06/03/23 05:45 06/03/23 14:38 Lab Results 06/03/23 06/03/23 06/03/23 Range/Units 05:45 06:30 08:03 WBC 7.95 (4.8-10.8) K/ul RBC 3.65 L (4.70-6.10) M/uL Hgb 11.8 L (14.0-18.0) g/dl Hct 34.2 L (42.0-52.0) % MCV 93.7 (80.0-100.0) fL MCH 32.3 (25.0-34.0) pg MCHC 34.5 (32.0-36.0) g/dL RDW Std Deviation 47.3 H (36.4-46.3) fL RDW Coeff of [place]ul[place] 13.9 (11.5-14.5) % Plt Count 312 (130-400) K/uL MPV 10.0 (9.4-12.4) fL Immature Gran % (Auto) 1.1 % Neut % (Auto) 77.7 % Lymph % (Auto) 10.3 % [place] % (Auto) 10.1 % Eos % (Auto) 0.3 % Baso % (Auto) 0.5 % Neut # (Auto) 6.18 (1.40-6.50) K/uL Lymph # (Auto) 0.82 L (1.20-3.40) K/uL [place] # (Auto) 0.80 H (0.11-0.59) K/uL Eos # (Auto) 0.02 (0.00-0.50) K/uL Baso # (Auto) 0.04 (0.00-0.20) K/uL Immature Gran # (Auto) 0.09 (0.01-0.20) K/uL Sodium 129 L (136-145) mmol/L Potassium 3.7 (3.5-5.1) mmol/L Chloride 96 L (98-107) mmol/L Carbon Dioxide 24 (21-32) mmol/L Anion Gap 9 (3-11) BUN 10 (6-23) mg/dl Creatinine 0.88 (0.6-1.4) mg/dl Est Cr Clr Drug Dosing 82.1 ml/min Est GFR ( Amer) 98.8 ml/min Est GFR (Non-Af Amer) 85.2 ml/min BUN/Creatinine Ratio 11.4 (10-20) Glucose 113 H (70-99(Fasting)) mg/dl Osmolality 269 L (280-300) mOsm/kg Lactate 1.5 (0.4-2.0) mmol/L Calcium 9.3 (8.6-10.3) mg/dl Magnesium 1.6 L (1.7-2.4) mg/dl Total Bilirubin 0.9 (0.2-1.0) mg/dl Direct Bilirubin 0.1 (0-0.2) mg/dl AST 48 H (13-39) U/L ALT 15 (7-52) U/L Alkaline Phosphatase 64 (34-104) U/L Troponin I High Sens 7769.2 H* 8525.1 H* (0-20) pg/ml B-Natriuretic Peptide 871 H (0-100) pg/ml Total Protein 7.1 (6.0-8.3) gm/dl Albumin 4.1 (3.4-5.0) gm/dl Procalcitonin < 0.05 (0-0.5) ng/ml Urine Color Yellow Urine Appearance Clear (Clear) Urine pH 7.0 (4.5-7.5) Ur Specific [place] 1.017 (1.000-1.030) Urine Protein Negative (Negative) Urine Glucose (UA) Negative (Negative) Urine Ketones Trace H (Negative) Urine Blood Negative (Negative) Urine Nitrite Negative (Negative) Urine Bilirubin Negative (Negative) Urine Urobilinogen Negative (Negative) Ur Leukocyte Esterase Negative (Negative) Urine Osmolality (500-800) mOsm/kg Ur Random Sodium mmol/L SARS-CoV-2 (PCR) POSITIVE A* (Negative) 06/03/23 Range/Units 08:37 WBC (4.8-10.8) K/ul RBC (4.70-6.10) M/uL Hgb (14.0-18.0) g/dl Hct (42.0-52.0) % MCV (80.0-100.0) fL MCH (25.0-34.0) pg MCHC (32.0-36.0) g/dL RDW Std Deviation (36.4-46.3) fL RDW Coeff of Zulay (11.5-14.5) % Plt Count (130-400) K/uL MPV (9.4-12.4) fL Immature Gran % (Auto) % Neut % (Auto) % Lymph % (Auto) % [place] % (Auto) % Eos % (Auto) % Baso % (Auto) % Neut # (Auto) (1.40-6.50) K/uL Lymph # (Auto) (1.20-3.40) K/uL [place] # (Auto) (0.11-0.59) K/uL Eos # (Auto) (0.00-0.50) K/uL Baso # (Auto) (0.00-0.20) K/uL Immature Gran # (Auto) (0.01-0.20) K/uL Sodium (136-145) mmol/L Potassium (3.5-5.1) mmol/L Chloride (98-107) mmol/L Carbon Dioxide (21-32) mmol/L Anion Gap (3-11) BUN (6-23) mg/dl Creatinine (0.6-1.4) mg/dl Est Cr Clr Drug Dosing ml/min Est GFR ( Amer) ml/min Est GFR (Non-Af Amer) ml/min BUN/Creatinine Ratio (10-20) Glucose (70-99(Fasting)) mg/dl Osmolality (280-300) mOsm/kg Lactate (0.4-2.0) mmol/L Calcium (8.6-10.3) mg/dl Magnesium (1.7-2.4) mg/dl Total Bilirubin (0.2-1.0) mg/dl Direct Bilirubin (0-0.2) mg/dl AST (13-39) U/L ALT (7-52) U/L Alkaline Phosphatase (34-104) U/L Troponin I High Sens (0-20) pg/ml B-Natriuretic Peptide (0-100) pg/ml Total Protein (6.0-8.3) gm/dl Albumin (3.4-5.0) gm/dl Procalcitonin (0-0.5) ng/ml Urine Color Urine Appearance (Clear) Urine pH (4.5-7.5) Ur Specific [place] (1.000-1.030) Urine Protein (Negative) Urine Glucose (UA) (Negative) Urine Ketones (Negative) Urine Blood (Negative) Urine Nitrite (Negative) Urine Bilirubin (Negative) Urine Urobilinogen (Negative) Ur Leukocyte Esterase (Negative) Urine Osmolality 278 L (500-800) mOsm/kg Ur Random Sodium 41 mmol/L SARS-CoV-2 (PCR) (Negative) Administered Medications Acetaminophen (Acetaminophen 325 Mg Tab) 650 mg PO Q4H PRN PRN Reason: Pain or Fever Stop: 07/03/23 10:07 Last Admin: 06/03/23 14:56 Dose: 650 mg Documented By: CARY Aspirin (Aspirin 81 Mg Ectab) 81 mg PO DAILY [facility] Stop: 07/03/23 10:14 Last Admin: 06/03/23 11:28 Dose: 81 mg Documented By: CARY Atenolol (Atenolol 50 Mg Tablet) 50 mg PO DAILY JUMA Stop: 07/03/23 10:14 Last Admin: 06/03/23 11:29 Dose: 50 mg Documented By: CARY Clopidogrel Bisulfate (Clopidogrel Bisulfate 75 Mg Tab) 0 mg PO DAILY [facility] Stop: 07/03/23 10:14 Last Admin: 06/03/23 14:50 Dose: 75 mg Documented By: CARY Docusate Sodium (Docusate Sodium 100 Mg Cap) 100 mg PO BID JUMA Stop: 07/03/23 10:14 Last Admin: 06/03/23 11:29 Dose: 100 mg Documented By: CARY Hydrochlorothiazide (Hydrochlorothiazide 25 Mg Tab) 12.5 mg PO DAILY [facility] Stop: 07/03/23 10:14 Last Admin: 06/03/23 11:31 Dose: Not Given Documented By: CARY Lactated Ringer's (Lr) 1,000 mls @ 80 mls/hr IV .[id number] [facility] Stop: 07/03/23 10:07 Last Admin: 06/03/23 11:25 Dose: 80 mls/hr Documented By: CARY Lisinopril (Lisinopril 40 Mg Tab) 40 mg PO DAILY [facility] Stop: 07/03/23 10:14 Last Admin: 06/03/23 11:28 Dose: 40 mg Documented By: CARY Nifedipine (Nifedipine Extended Rel 30 Mg Tabcr) 90 mg PO DAILY [facility] Stop: 07/03/23 10:29 Last Admin: 06/03/23 11:28 Dose: 90 mg Documented By: CARY Pantoprazole Sodium (Pantoprazole 40 Mg Tab) 40 mg PO DAILY [facility] Stop: 07/03/23 10:29 Last Admin: 06/03/23 11:28 Dose: 40 mg Documented By: CARY Discontinued Medications Albuterol (Ipratropium [place]/Albuterol Respimat Inh) 1 puffs INH NOW STA Stop: 06/03/23 06:59 Last Admin: 06/03/23 07:17 Dose: 1 puffs Documented By: RISA Aspirin (Aspirin Chew 324 Mg) 324 mg PO NOW STA Stop: 06/03/23 08:22 Last Admin: 06/03/23 08:36 Dose: 324 mg Documented By: NI Magnesium Sulfate/Dextrose (Magnesium Sulfate / D5w) 1 gm in 100 mls @ 100 mls/hr IV NOW STA Stop: 06/03/23 07:41 Last Infusion: 06/03/23 09:05 Dose: Infused Documented By: Admin: 06/03/23 07:55 Dose: 100 mls/hr Documented By: CC Sodium Chloride (Nss) 500 mls @ 999 mls/hr IV .Q31M ONE Stop: 06/03/23 07:28 Last Infusion: 06/03/23 08:41 Dose: Infused Documented By: Admin: 06/03/23 07:16 Dose: 999 mls/hr Documented By: RISA Acetaminophen (Ofirmev) 1,000 mg in 100 mls @ 400 mls/hr IV NOW STA Stop: 06/03/23 07:12 Last Infusion: 06/03/23 07:57 Dose: Infused Documented By: Admin: 06/03/23 07:15 Dose: 400 mls/hr Documented By: RISA Magnesium Sulfate/Dextrose (Magnesium Sulfate / D5w) 1 gm in 100 mls @ 50 mls/hr IV Q2H JUMA Stop: 06/03/23 14:29 Last Infusion: 06/03/23 14:50 Dose: Infused Documented By: Admin: 06/03/23 12:49 Dose: 50 mls/hr Documented By: Infusion: 06/03/23 12:49 Dose: Infused Documented By: Admin: 06/03/23 11:25 Dose: 50 mls/hr Documented By: CARY Ioversol (Optiray 320 125ml) 115 ml IV ONCE ONE Stop: 06/03/23 07:34 Last Admin: 06/03/23 07:33 Dose: 115 ml Documented By: DONNELL Ketorolac Tromethamine (Ketorolac Tromethamine 15 Mg/Ml Vial) 10 mg IV NOW STA Stop: 06/03/23 06:07 Last Admin: 06/03/23 06:09 Dose: 10 mg Documented By: BELINDA Imaging Data Radiologist's Impression: Chest X-Ray 06/03/23 05:18 XR chest 1V portable HISTORY: Sepsis COMPARISON: Chest 05/23/2023. FINDINGS: The lungs are clear. Cardiac silhouette is normal in size. No pleural effusions. No pneumothorax. IMPRESSION: No acute process. ACT 112: Negative or not required by law. Electronically signed by: Lobo Queen M.D. 06/03/2023 8:07 AM Chest CTA 06/03/23 06:43 Exam(s): CTA CHEST EXAM: CT Angiography Chest With Intravenous Contrast CLINICAL HISTORY: Reason for exam: elevated trop, cp, sob, covid19 PE. TECHNIQUE: Axial computed tomographic angiography images of the chest with intravenous contrast. Automated exposure control was utilized for the study. A dose lowering technique was utilized adhering to the principles of ALARA. MIP reconstructed images were created and reviewed. COMPARISON: No relevant prior studies available. FINDINGS: Pulmonary arteries: Respiratory motion limits evaluation of the distal pulmonary vasculature. Within these constraints, no evidence of large or proximal segmental pulmonary embolism. Aorta: Moderate atherosclerosis. No thoracic aortic aneurysm. Lungs: Unremarkable. No mass. No consolidation. Pleural space: No significant effusion. No pneumothorax. Heart: Mild cardiomegaly. Prominent coronary atherosclerosis. No significant pericardial effusion. No evidence of RV dysfunction. Bones/joints: No definite acute fracture or dislocation. Thoracic spondylosis. Soft tissues: Unremarkable. Lymph nodes: No enlarged lymph nodes. IMPRESSION: Respiratory motion limits evaluation of the distal pulmonary vasculature. Within these constraints, no evidence of large or proximal segmental pulmonary embolism. No other acute findings in the chest. Electronically signed by: Chin Salazar M.D. 06/03/23 08:15 AM Discharge Plan Visit Data Chief Complaint: Flu Like Symptoms Stated Complaint: +COVID YESTERDAY ED Provider: Triston Garrett Discharge Problem: COVID-19, Myocarditis, Elevated troponin, Hyponatremia Patient Disposition: Admitted As Inpatient Discharge Instructions Interventions: ED Discharge Assessment Last Done: 06/03/23 09:17 Discharge Problem: Myocarditis Qualifiers: Myocarditis type: unspecified Chronicity: acute Qualified Code(s): I40.9 - Acute myocarditis, unspecified
[2023-06-03] MEDS ORDERED: OPTIRAY 320 125ml IV ONE (07:33)
--- NOTE | 2023-06-03 08:08 | XRay Report ---
XR chest 1V portable HISTORY: Sepsis COMPARISON: Chest 05/23/2023. FINDINGS: The lungs are clear. Cardiac silhouette is normal in size. No pleural effusions. No pneumot horax. IMPRESSION: No acute process. ACT 112: Negative or not required by law. Electronically signed by: Lobo Queen M.D. 06/03/2023 8:07 AM
--- NOTE | 2023-06-03 08:16 | CT Scan Report ---
Exam(s): CTA CHEST EXAM: CT Angiography Chest With Intravenous Contrast CLINICAL HISTORY: Reason for exam: elevated trop, cp, sob, covid19 PE. TECHNIQUE: Axial computed tomographic angiography images of the chest with intravenous contrast. Automated exposure control was utilized for the study. A dose lowering technique was utilized adhering to the principles of ALARA. MIP reconstructed images were created and reviewed. COMPARISON: No relevant prior studies available. FINDINGS: Pulmonary arteries: Respiratory motion limits evaluation of the distal pulmonary vasculature. Within these constraints, no evidence of large or proximal segmental pulmonary embolism. Aorta: Moderate atherosclerosis. No thoracic aortic aneurysm. Lungs: Unremarkable. No mass. No consolidation. Pleural space: No significant effusion. No pneumothorax. Heart: Mild cardiomegaly. Prominent coronary atherosclerosis. No significant pericardial effusion. No evidence of RV dysfunction. Bones/joints: No definite acute fracture or dislocation. Thoracic spondylosis. Soft tissues: Unremarkable. Lymph nodes: No enlarged lymph nodes. IMPRESSION: Respiratory motion limits evaluation of the distal pulmonary vasculature. Within these constraints, no evidence of large or proximal segmental pulmonary embolism. No other acute findings in the chest. Electronically signed by: Chin Salazar M.D. 06/03/23 08:15 AM
[2023-06-03] MEDS ORDERED: ASPIRIN CHEW 324 MG PO STA (08:21)
--- NOTE | 2023-06-03 08:35 | Electrocardiogram Report ---
Test Reason : Blood Pressure : / mmHG Vent. Rate : 077 BPM Atrial Rate : 077 BPM P-R Int : 176 ms QRS Dur : 076 ms QT Int : 366 ms P-R-T Axes : 005 069 080 degrees QTc Int : 414 ms Sinus rhythm with marked sinus arrhythmia Old Anteroseptal infarct (cited on or before 23-MAY-2023) Abnormal ECG When compared with ECG of 23-MAY-2023 16:39, Premature atrial complexes are no longer Present Confirmed by Jb Morales ([id number]) on 06/03/2023 8:35:14 AM Referred By: Confirmed By:Jb Morales
[2023-06-03] MEDS ORDERED: MAGNESIUM HYDROXIDE SUSP 30 ML UDC PO PRN (10:08)
[2023-06-03] MEDS ORDERED: ALUMINUM/MAGNESIUM SUSP 30 ML UDC PO PRN (10:08)
[2023-06-03] MEDS ORDERED: NITROGLYCERIN SL 0.4 MG/TAB TAB SL PRN (10:08)
[2023-06-03] MEDS ORDERED: POLYETHYLENE (MIRALAX) 17 GM PACK PO PRN (10:08)
[2023-06-03] MEDS ORDERED: ONDANSETRON INJ 2 MG/ML 2 ML VIAL IV PRN (10:08)
[2023-06-03] MEDS ORDERED: NON-FORMULARY MEDICATION (Coenzyme Q10 100 mg capsule) PO SCH (10:08)
[2023-06-03] MEDS ORDERED: traMADol HCL 50 MG TABLET PO PRN (10:08)
[2023-06-03] MEDS ORDERED: hydroCHLOROthiazide 25 MG TAB PO SCH (10:15)
[2023-06-03] MEDS: LACTATED RINGER'S 1,000 ML IV SCH ×2 (11:25→22:29)
[2023-06-03] MEDS: MAGNESIUM SULFATE / D5W 1 GM/100 ML BAG IV SCH ×2 (11:25→12:49)
[2023-06-03] MEDS: NIFEdipine EXTENDED REL 30 MG TABCR PO SCH (11:28)
[2023-06-03] MEDS: lisinopril 40 MG TAB PO SCH (11:28)
[2023-06-03] MEDS: PANTOprazole 40 MG TAB PO SCH (11:28)
[2023-06-03] MEDS: ASPIRIN 81 MG ECTAB PO SCH (11:28)
[2023-06-03] MEDS: DOCUSATE SODIUM 100 MG CAP PO SCH ×2 (11:29→22:30)
[2023-06-03] MEDS: ATENOLOL 50 MG TABLET PO SCH (11:29)
--- NOTE | 2023-06-03 11:34 | History & Physical Report ---
Date of Service June 03, 2023 Assessment & Plan (1) COVID-19: Plan: COVID-19 with suspected viral myocarditis Approximate 2 days of symptoms, patient's is also positive for this. Supportive care, SpO2 goal greater than 90% currently on room air. CRP pending No indication for steroids/remdesivir at this time CTAchest: No evidence of PE. No pleural effusions. No pulmonary edema is appreciated Clinically euvolemic to slightly hypervolemic. Right lower leg is without edema, left lower leg has some postprocedural swelling which is rapidly improving and not worsened per patient (2) Myocarditis: Plan: Chest pain, suspected myocarditis + costochrondritis With cough, congestion, and chest pain over several days with new left-sided chest pain worse with breathing and coughing. Patient reports he is pain-free at bedside, and has been completely pain-free in between episodes of coughing. His chest pain is reproducible on the left lower rib palpation. Troponin elevated at 7.7K, uptrending. No ST segment changes on EKG Case was reviewed with cardiology in ER, low suspicion for ACS and suspect that this is related to myocarditis and COVID-19. Heparin may be deferred at this time. DAPT continued, recieved full dose ASA in ER. Troponin trended, stat echo pending (3) Hyponatremia: Plan: Hyponatremia 129, new since 05/23 with baseline 136. Patient reports he did have 1 prior episode several weeks ago which normalized with sports electrolyte drink intake Near euvolemic on exam with no right lower extremity edema, no pulmonary edema or crackles, and no JVD at time of assessment. LLE swelling improving post- procedurally. BNP is elevated in the setting of suspected myocarditis. Urine sodium is greater than 40, urine osmolality 278. Suspect mild COVID vs thiazide associated SIADH. Will fluid restrict and trend. If evidence of worsening overload/hypervolemia --> lasix 20mg. Pt initially reports an allergy to lasix, but clarifies he had this in [place] and 'worked too well, dehydrated me like crazy'. Thiazide held Hypomagnesemia 1.6 on admission, repleted, trended (4) CAD (coronary artery disease): Plan: CAD History of 1 BMS 2002, preserved ejection fraction on last echo DAPT, lisinopril, and nifedipine continued. Patient is following up for discussion on switching to Plavix/Xarelto, this was discussed at his last follow-up with vascular cardiology and is recommended to defer at this time Continue statin Patient has no persistent chest pain or chest pain with exertion. He does have intermittent chest pain which is worsened by palpation his left lower rib and worsened by cough and which currently resolved between coughing. Suspect myocarditis as noted below/minus costochondritis. Troponins trended (5) PAD (peripheral artery disease): Plan: S/p left common femoral endarterectomy with bovine patch 05/23/[address] Guerrero Surgical site well-healing, jasmin intact, no surrounding erythema/warmth/te nderness Sensation to soft touch intact in feet bilaterally, PT pulse intact in feet bilaterally. Left 23+ pitting edema is present, this is rapidly improving post procedurally per patient he has no pain in the calf and has not had any increased swelling since his procedure (6) Hypertension: Plan: Thiazide held Continue home nifedipine, lisinopril Normotensive at bedside (7) Dyslipidemia: Plan: Continue statin (8) BPH with obstruction/lower urinary tract symptoms: Plan: Bladder scan pending, if normal then may perform bladder scan and cath as needed for PVR greater than 350. 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 Romero is seen at the beside with his present. He reports yesterday was working on his refrigerator when he developed a lower l sided chest discomfort worse with coughing, fatigue, low energy, and a feeling of heart pounding/palpitations. Chest pain at worst was 'not real bad, its a needle like feeling only for 10-15 seconds and worse when I cough' but goes away inbetween coughing. L leg swith swelling du eto vascular disease and procedure, this is actually improved compared to last week. His R leg has no swelling. Shortness of breath and easy fatigue x1-2 days. Denies orthopnea. Has had fevers at home 100.5 last night. Took 1 tylenol at 430am, 500mg Has not taking any of home normal medications today Still taking hctz Denies history of problems with low sodium in the past, but notes had one episode recently where it was ~132 for the first time Drinks beer, does salt his food. NOrmalized a few weeks later with adding a little salt to diet Last 2 days he reports 'I have been peeing like no tomorrow.' [place] dehydrated yesterday, feels improved today. Drank 1L bottle of tonic water this morning just because he felt so dry and out of it. Also drank 2x 16oz bottles of water + gatorade last night NO recent medication change Current on asa/plaavis. Has discussed eliquis/xarelto with Dr. Baker, but is recommended to hold off on that for now. had a f/u US of his legs next week. Has had lasix allergy listed due to 'working too well, dehydrated me like crazy." No tobacco. Quit 20 years ago. EtoH daily 1-2 beers. Has gone several days without alcohol this past month and no withdrawal sx. Allergic to tramadol, gets confused and 'weird' with oxycodone. Full Code Allergies Allergy/AdvReac Type Severity Reaction Status Date / Time BRETT Inhibitors Allergy Unknown Unknown Verified 05/22/23 09:53 bisoprolol Allergy Unknown Unknown Verified 05/22/23 09:53 hydrochlorothiazide Allergy Unknown Unknown Verified 05/22/23 09:53 Sulfa (Sulfonamide Allergy Unknown Unknown Verified 05/22/23 09:53 Antibiotics) furosemide [From Lasix] Allergy Unknown Verified 05/22/23 09:53 ezetimibe [From Zetia] AdvReac Intermediate Unknown Verified 05/22/23 09:53 tramadol AdvReac Intermediate Nausea and Unverified 06/03/23 09:14 vomiting fosinopril AdvReac Unknown GI UPSET Verified 05/22/23 09:53 oxycodone AdvReac Unknown FEELS Verified 05/22/23 09:53 STRANGE MONOPRIL-GI Allergy Unknown Unknown Uncoded 05/22/23 09:53 UPSET;OXYCODONE-"FEELS STRANGE" THIAZIDE Allergy Unknown Unknown Uncoded 05/22/23 09:53 Home Medications Medication Instructions Recorded Confirmed Type Ca 600 mg-D3 20 mcg-mag oxide 50 1 tab PO DAILY 04/11/19 06/03/23 History tv-Fl-xkdbev-manganese-boron tablet (Calcium 600-D3 Plus (mag-zinc)) aspirin 81 mg tablet 81 mg PO DAILY 04/11/19 06/03/23 History hydrochlorothiazide 12.5 mg tablet 12.5 mg PO DAILY 04/11/19 06/03/23 History multivitamin (Daily Multiple 1 tab PO DAILY 04/11/19 06/03/23 History tablet) nifedipine 90 mg tablet,extended 90 mg PO DAILY 04/11/19 06/03/23 History release 24 hr omeprazole 20 mg capsule,delayed 20 mg PO BID 04/11/19 06/03/23 History release atorvastatin 10 mg tablet 5 mg PO QPM 11/08/21 06/03/23 History lisinopril 40 mg tablet 40 mg PO DAILY 05/23/22 06/03/23 History coenzyme Q10 100 mg capsule 100 mg PO BID 01/04/23 06/03/23 History alfuzosin 10 mg tablet,extended See Rx Instructions .Route 02/28/23 06/03/23 Rx release 24 hr .COMPLEX #90 tabs atenolol 50 mg tablet 50 mg PO DAILY #90 tabs 05/22/23 06/03/23 Rx iricordt-khd-akyqd4 250 mg-dha 90 1 cap PO DAILY 05/22/23 06/03/23 History mg-epa 160 px-djac-hwos-zeax capsule (Ocuvite Adult 50 Plus) clopidogrel 75 mg tablet 75 mg PO DAILY 05/23/23 06/03/23 History docusate sodium 100 mg capsule 100 mg PO BID 30 days #60 caps 05/25/23 06/03/23 Rx Glucosamine-Marcelo 1500/1200 2 tabs PO DAILY 06/03/23 06/03/23 History flaxseed oil 1,000 mg capsule 1,000 mg PO DAILY 06/03/23 06/03/23 History Past Med/Surg History Medical History AAA (abdominal aortic aneurysm) Male erectile disorder of organic origin Former smoker Esophageal reflux Cerebrovascular disease Arterial insufficiency of lower extremity Carotid artery disease BPH with obstruction/lower urinary tract symptoms Presence of bare metal stent in left circumflex coronary artery Dyslipidemia Hypertension PAD (peripheral artery disease) CAD (coronary artery disease) Surgical History H/O knee surgery Family History Other Coronary heart disease Diabetes Hypertension Social History Smoking Status: Former smoker Tobacco Type: Cigarettes and Smokeless Tobacco (Dip or Chew) Second Hand Exposure: No; Do You Dip or Chew Tobacco: No; Tobacco Cessation Education Requested by Patient: No Hx Alcohol Use: Yes Alcohol type: beer Hx Substance Use: No Preferred Language: Khmer Communication Ability: Effective American Sign Language Teacher Required: No Beliefs That Will Affect Care: None marital status: Current Living Situation: Spouse current occupational status: retired Other Information That Helps Us Care for You: No Feels Safe at Home: Yes Safety Concerns: Feels Safe At This Time Assistive Devices: Glasses Physical Exam Physical Exam: General: A&Ox3. NAD. Cooperative. HEENT: Atraumatic, normocephalic. Vision/hearing intact. Pupils equal and reactive to light Pulm: CTAB A&P. -wheezes, -rales, -rhonchi. Symmetrical chest rise. No increased work of breathing. No respiratory distress. Cardiac: RRR, -mrg. Radial pulses intact and symmetrical. Abdominal: Nontender, nondistended, soft. BS present. Extremities: Left femoral surgical site C/C/I, jasmin in place, no surrounding erythema/warmth/tenderness/dehiscence. Left lower extremity with 23+ edema, rapidly improving since procedure per patient. Right lower extremity with no edema. Sensation soft touch intact in hands and feet bilaterally, junior sales representative strength, ankle dorsiflexion/plantarflexion, hip flexion are all intact and symmetrical Results & Data Results & Data Vital Signs (Past 12 Hours) Vital Signs Temp Pulse Pulse Resp BP BP Pulse Ox 06/03/23 10:19 72 06/03/23 09:13 64 18 138/77 96 06/03/23 08:51 37.3 C 70 16 139/85 97 06/03/23 07:11 68 18 142/78 H 95 11/25/23 05:51 72 06/03/23 05:14 37.1 C 87 20 143/70 H 96 O2 Del Method 06/03/23 10:19 06/03/23 09:13 Room Air 06/03/23 08:51 Room Air 06/03/23 07:11 Room Air 06/03/23 05:51 06/03/23 05:14 Room Air Code Status & VTE Plan VTE Prophylaxis Plan VTE Prophylaxis will be ordered: Yes PG Care Time/CCT Total # of Minutes Spent Total Time Spent with Patient: Total time spent is greater than 50% in coordination of care (as documented) at patient's floor/unit and/or counseling patient: Coding Level of Care Code 49533 INT INP/OBS CARE 3/75MIN Diagnoses COVID-19 U07.1 Myocarditis I51.4 Hyponatremia E87.1 CAD (coronary artery disease) I25.10 PAD (peripheral artery disease) I73.9 Hypertension I10 Dyslipidemia E78.5 BPH with obstruction/lower urinary tract symptoms N40.1; N13.8
--- NOTE | 2023-06-03 12:52 | Cardiology Consultation ---
Date of Consultation June 03, 2023 Assessment & Plan (1) Myocarditis due to 2019 novel coronavirus: Elevated troponin in the absence of ischemic type chest pain or acute ECG changes and in the presence of viral URI symptoms with positive COVID test is most consistent with a viral myocarditis, no need for intravenous heparin at this point. However, given history of coronary artery disease and increased risk of thrombosis in the context of COVID-19 infection, will obtain echocardiogram to exclude focal wall motion abnormalities. Expect either normal wall motion or mild global hypokinesis if myocarditis, should there be evidence of a focal wall motion abnormality would need to reevaluate and consider thrombotic event and use of IV heparin. Management of COVID myocarditis is supportive, maintain adequate hydration, monitor rhythm, avoid blood pressure extremes. Will continue to follow with further recommendations based upon echocardiogram results. (2) CAD (coronary artery disease): As noted, troponin elevation more consistent with viral myocarditis than acute coronary syndrome. Continue aspirin and clopidogrel. Continue atorvastatin and atenolol. (3) PAD (peripheral artery disease): Incision at site of recent left femoral endarterectomy healing well, no evidence of infection. (4) Hypertension: Continue lisinopril and nifedipine. Hydrochlorothiazide held given low-grade fever and likely reduced oral intake. History of Present Illness Reason for Consultation: Myocarditis Requesting Physician: Lopez Grant DO Attending Physician: Lopez Grant DO History of Present Illness 72-year-old man with history of CAD (circumflex stent 2002), PAD (multiple prior procedures, status post left femoral endarterectomy 05/23/2020), AAA (3.1 cm), nonocclusive carotid disease, who presents with palpitations, intermittent chest discomfort, fatigue, fever, and cough and found to be COVID-19 positive with moderate troponin elevation but no acute ECG changes. He notes that he gets anterior chest wall pain when bicycling at times, he had a similar discomfort when working on his refrigerator yesterday, described as a "tingling" that lasted several minutes. Subsequently, he felt a strong sense of his "heart pounding" and developed viral URI type symptoms prompting an ER visit. He has not had any sustained or typical anginal type discomfort. He denied significant dyspnea, orthopnea, PND, or leg edema. No lightheadedness, presyncope, or syncope. Initial troponin 7769 increasing to 8525. ECG showed sinus rhythm with sinus arrhythmia and an old anteroseptal infarct, no acute ST deviation. Compared with 05/23/2023 ECG, PACs no longer present, otherwise no significant change. Chest x-ray unremarkable. Chest CT negative for pulmonary embolism. He was comfortable at rest at the time of my evaluation this afternoon. Allergies Allergy/AdvReac Type Severity Reaction Status Date / Time BRETT Inhibitors Allergy Unknown Unknown Verified 05/22/23 09:53 bisoprolol Allergy Unknown Unknown Verified 05/22/23 09:53 hydrochlorothiazide Allergy Unknown Unknown Verified 05/22/23 09:53 Sulfa (Sulfonamide Allergy Unknown Unknown Verified 05/22/23 09:53 Antibiotics) furosemide [From Lasix] Allergy Unknown Verified 05/22/23 09:53 ezetimibe [From Zetia] AdvReac Intermediate Unknown Verified 05/22/23 09:53 tramadol AdvReac Intermediate Nausea and Unverified 06/03/23 09:14 vomiting fosinopril AdvReac Unknown GI UPSET Verified 05/22/23 09:53 oxycodone AdvReac Unknown FEELS Verified 05/22/23 09:53 STRANGE MONOPRIL-GI Allergy Unknown Unknown Uncoded 05/22/23 09:53 UPSET;OXYCODONE-"FEELS STRANGE" THIAZIDE Allergy Unknown Unknown Uncoded 05/22/23 09:53 Home Medications Medication Instructions Recorded Confirmed Type Ca 600 mg-D3 20 mcg-mag oxide 50 1 tab PO DAILY 04/11/19 06/03/23 History ux-Jb-azxpfv-manganese-boron tablet (Calcium 600-D3 Plus (mag-zinc)) aspirin 81 mg tablet 81 mg PO DAILY 04/11/19 06/03/23 History hydrochlorothiazide 12.5 mg tablet 12.5 mg PO DAILY 04/11/19 06/03/23 History multivitamin (Daily Multiple 1 tab PO DAILY 04/11/19 06/03/23 History tablet) nifedipine 90 mg tablet,extended 90 mg PO DAILY 04/11/19 06/03/23 History release 24 hr omeprazole 20 mg capsule,delayed 20 mg PO BID 04/11/19 06/03/23 History release atorvastatin 10 mg tablet 5 mg PO QPM 11/08/21 06/03/23 History lisinopril 40 mg tablet 40 mg PO DAILY 05/23/22 06/03/23 History coenzyme Q10 100 mg capsule 100 mg PO BID 01/04/23 06/03/23 History alfuzosin 10 mg tablet,extended See Rx Instructions .Route 02/28/23 06/03/23 Rx release 24 hr .COMPLEX #90 tabs atenolol 50 mg tablet 50 mg PO DAILY #90 tabs 05/22/23 06/03/23 Rx lkmjvbvg-bfl- 250 mg-dha 90 1 cap PO DAILY 05/22/23 06/03/23 History mg-epa 160 zw-lcvx-cnmr-zeax capsule (Ocuvite Adult 50 Plus) clopidogrel 75 mg tablet 75 mg PO DAILY 05/23/23 06/03/23 History docusate sodium 100 mg capsule 100 mg PO BID 30 days #60 caps 05/25/23 06/03/23 Rx Glucosamine-Marcelo 1500/1200 2 tabs PO DAILY 06/03/23 06/03/23 History flaxseed oil 1,000 mg capsule 1,000 mg PO DAILY 06/03/23 06/03/23 History Patient History Medical History AAA (abdominal aortic aneurysm) Male erectile disorder of organic origin Former smoker Esophageal reflux Cerebrovascular disease Arterial insufficiency of lower extremity Carotid artery disease BPH with obstruction/lower urinary tract symptoms Presence of bare metal stent in left circumflex coronary artery Dyslipidemia Hypertension PAD (peripheral artery disease) CAD (coronary artery disease) Surgical History H/O knee surgery Family History Other Coronary heart disease Diabetes Hypertension Social History Smoking Status: Former smoker Tobacco Type: Cigarettes and Smokeless Tobacco (Dip or Chew) Second Hand Exposure: No; Do You Dip or Chew Tobacco: No; Tobacco Cessation Education Requested by Patient: No Hx Alcohol Use: Yes Alcohol type: beer Hx Substance Use: No Preferred Language: Swazi Communication Ability: Effective 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 BP normotensive. Pulse 64 bpm and regular. Respirations 18 and unlabored. Currently afebrile (99.0 degrees). Skin: no ecchymoses or generalized lesions. HEENT: unremarkable. Neck: JVP at the clavicle at 90 degrees, no carotid bruits. Lungs: clear bilaterally. Cardiac: regular rhythm, normal S1-2, no murmur or rub. Abdomen: Left femoral region incision clean and dry, abdomen nondistended and nontender. Extremities: Trace to 1+ left leg pretibial edema, none on the right. Good capillary refill distally. Neurologic: normal affect and conversation, nonfocal. Results & Data Laboratory Results Troponins as per HPI. WBC normal, hemoglobin 11.8, normal platelet count. Sodium 129, chloride 96, potassium 3.7, BUN 10, creatinine 0.88. Diagnostic Findings ECG, chest x-ray, and chest CT as per HPI. Echocardiogram 2021 showed normal LV systolic function (EF 60 to 65%) with no wall motion abnormalities and only trivial valvular disease. Mildly elevated RVSP. PG Care Time/CCT Total # of Minutes Spent Total Time Spent with Patient: Total time spent is greater than 50% in coordination of care (as documented) at patient's floor/unit and/or counseling patient: Coding Level of Care Code 94879 IN/OBS CONSULT LVL 4,60M Diagnoses Myocarditis due to 2019 novel coronavirus U07.1; I40.0 CAD (coronary artery disease) I25.10 PAD (peripheral artery disease) I73.9 Hypertension I10
[2023-06-03 13:02] LABS: Calcium 8.5 mg/dl (8.6-10.3); Potassium 3.6 mmol/L (3.5-5.1)
[2023-06-03 13:08] LABS: BUN Creatinine Ratio 11.1 (10-20); Creatinine Clr Calc Pharmacy 89.1 ml/min; Est GFR (African American) 102.2 ml/min; Est GFR (Non-African American) 88.2 ml/min
[2023-06-03] MEDS: CLOPIDOGREL BISULFATE 75 MG TAB PO SCH (14:50)
[2023-06-03] MEDS: ACETAMINOPHEN 325 MG TAB PO PRN ×2 (14:56→22:29)
[2023-06-03 15:13] LABS: BUN Creatinine Ratio 12.5 (10-20); Calcium 8.4 mg/dl (8.6-10.3); Creatinine Clr Calc Pharmacy 82.1 ml/min; Est GFR (African American) 98.8 ml/min; Est GFR (Non-African American) 85.2 ml/min; Potassium 3.8 mmol/L (3.5-5.1)
--- NOTE | 2023-06-03 18:47 | XCELERA ---
[id number]
[2023-06-03] MEDS ORDERED: Heparin IV Adult Wt-Based Low-Dose WITH Bolus Protocol IV STA (18:52)
[2023-06-03] MEDS ORDERED: HEPARIN SOD (PORCINE) 1000 UNIT/ML ONE (20:05)
[2023-06-03] MEDS ORDERED: HEPARIN 25000 UNIT/500 ML D5W IV ONE (20:06)
[2023-06-03] MEDS ORDERED: HEPARIN SOD (PORCINE) 1000 UNIT/ML IV ONE (20:30)
[2023-06-03 20:33] LABS: INR 1.1 (0.9-1.1); Partial Thromboplastin Ratio 1.1; Partial Thromboplastin Time 32.4 Seconds (21.0-31.0); Prothrombin Time 11.6 Seconds (9.0-12.0)
[2023-06-03] MEDS ORDERED: ATORVASTATIN 10 MG TAB PO SCH (21:00)
[2023-06-03] MEDS: HEPARIN SODIUM/DEXTROSE 25,000 UNITS/500 ML BAG IV SCH (22:28)
[2023-06-04 04:36] LABS: Basophils # (auto) 0.03 K/uL (0.00-0.20); Basophils % (auto) 0.6 %; Eosinophils # (auto) 0.01 K/uL (0.00-0.50); Eosinophils % (auto) 0.2 %; Hematocrit (blood only) 31.5 % (42.0-52.0); Hemoglobin 10.9 g/dl (14.0-18.0); Immature Granulocytes # (auto) 0.08 K/uL (0.01-0.20); Immature Granulocytes % (auto) 1.6 %; Lymphocytes # (auto) 0.84 K/uL (1.20-3.40); Mean Corpuscular Hemoglobin 32.4 pg (25.0-34.0); Mean Corpuscular Hgb Conc 34.6 g/dL (32.0-36.0); Mean Corpuscular Volume 93.8 fL (80.0-100.0); Mean Platelet Volume 9.9 fL (9.4-12.4); Monocytes # (auto) 0.55 K/uL (0.11-0.59); Monocytes % (auto) 11.2 %; Neutrophils # (auto) 3.42 K/uL (1.40-6.50); Neutrophils % (auto) 69.4 %; Platelet Count 258 K/uL (130-400); RDW Coefficient of Variation 14.1 % (11.5-14.5); RDW Standard Deviation 48.1 fL (36.4-46.3); Red Blood Count 3.36 M/uL (4.70-6.10); White Blood Count 4.93 K/ul (4.8-10.8)
[2023-06-04 04:51] LABS: BUN Creatinine Ratio 13.9 (10-20); Calcium 8.2 mg/dl (8.6-10.3); Creatinine Clr Calc Pharmacy 91.4 ml/min; Est GFR (African American) 103.2 ml/min; Est GFR (Non-African American) 89.1 ml/min; Potassium 3.7 mmol/L (3.5-5.1)
[2023-06-04 05:20] LABS: Partial Thromboplastin Ratio 2.3
[2023-06-04 05:22] LABS: Partial Thromboplastin Time 64.3 Seconds (21.0-31.0)
[2023-06-04] MEDS: lisinopril 40 MG TAB PO SCH (07:48)
[2023-06-04] MEDS: CLOPIDOGREL BISULFATE 75 MG TAB PO SCH (07:49)
[2023-06-04] MEDS: DOCUSATE SODIUM 100 MG CAP PO SCH ×2 (07:49→20:19)
[2023-06-04] MEDS: PANTOprazole 40 MG TAB PO SCH (07:49)
[2023-06-04] MEDS: NIFEdipine EXTENDED REL 30 MG TABCR PO SCH (07:49)
[2023-06-04] MEDS: ATENOLOL 50 MG TABLET PO SCH (07:50)
[2023-06-04] MEDS: LACTATED RINGER'S 1,000 ML IV SCH (10:33)
--- NOTE | 2023-06-04 10:41 | Cardiology Progress Note ---
Date of Service June 04, 2023 Assessment & Plan (1) NSTEMI, initial episode of care: Plan: Although somewhat atypical symptoms and absence of ECG findings initially suggested viral myocarditis, focal wall motion abnormalities more consistent with either your acute thrombotic occlusion or stress cardiomyopathy. Fortunately, troponin values have peaked and are beginning to decline and the patient has no evidence of ongoing myocardial ischemia, congestive heart failure, or dysrhythmias. Would recommend proceeding to cardiac catheterization to further evaluate etiology of newly diagnosed cardiomyopathy. He is already on dual antiplatelet therapy and was placed on heparin last evening. (2) Cardiomyopathy: Plan: Continue BRETT inhibitor (lisinopril). Would switch from atenolol to guideline recommended beta-gisele such as metoprolol succinate, could global director air and climate change tomorrow by discontinuing atenolol and initiating metoprolol succinate 50 mg daily. Decide on additional medications based on catheterization findings and reassessment of left ventricular systolic function in a few days if no coronary occlusion (i.e., if stress cardiomyopathy which improves rapidly may not need guideline directed therapy). (3) CAD (coronary artery disease): Plan: Remote stenting of circumflex (2002). (4) COVID-19: Plan: Could predispose to prothrombotic state precipitating vessel occlusion, could also predispose to stress-induced cardiomyopathy. (5) PAD (peripheral artery disease): Plan: Incision at site of recent left femoral endarterectomy healing well, no evidence of infection. (6) Hypertension: Plan: Continue lisinopril and nifedipine. Resume hydrochlorothiazide if BP rises. Admission and Anticipated Discharge Date Admission Date: June 03, 2023 Subjective Uneventful night. He noted a brief "twinge" of left lower chest discomfort briefly this morning, no symptoms similar to his admission chest discomfort. No dyspnea, subjective palpitations, lightheadedness, or other symptoms. Telemetry showed sinus rhythm at 60-90 bpm with sporadic PVCs but no dysrhythmias. Physical Exam Physical Exam: No distress. BP normotensive. Pulse 65 bpm and regular. Respirations 18 and unlabored. Currently afebrile (99.3 degrees). Tm 100.0. Skin: no ecchymoses or generalized lesions. HEENT: unremarkable. Neck: JVP at the clavicle at 90 degrees, no carotid bruits. Lungs: clear bilaterally. Cardiac: regular rhythm, normal S1-2, no murmur or rub. Abdomen: Left femoral region incision clean and dry, abdomen nondistended and nontender. Extremities: Trace to 1+ left leg pretibial edema, none on the right. Good capillary refill distally. Neurologic: normal affect and conversation, nonfocal. Results & Data Laboratory Results Sodium 128, potassium 3.7, BUN 11, creatinine 0.79. Serial troponins 7769, 8525, 7713, 7060, 6693, 6468. WBC normal, hemoglobin 10.9, normal platelet count. Diagnostic Findings Echocardiogram showed EF 30 to 35% with anterior and apical akinesis, severe tricuspid regurgitation with normal RVSP. Compared with 11/01/2021 study, wall motion evaluation new, LV systolic function has declined, and tricuspid re gurgitation more severe. PG Care Time/CCT Total # of Minutes Spent Total Time Spent with Patient: Total time spent is greater than 50% in coordination of care (as documented) at patient's floor/unit and/or counseling patient: Coding Level of Care Code 29456 SUB INP/OBS CARE 3/50MIN Diagnoses NSTEMI, initial episode of care I21.4 Cardiomyopathy I42.9 CAD (coronary artery disease) I25.10 COVID-19 U07.1 PAD (peripheral artery disease) I73.9 Hypertension I10
[2023-06-04] MEDS: ACETAMINOPHEN 325 MG TAB PO PRN (11:43)
[2023-06-04] MEDS ORDERED: HEPARIN (PORCINE) 1000 UNIT/ML 10 ML (CATH LAB USE ONLY) ONE (12:14)
[2023-06-04] MEDS ORDERED: niCARdipine HCL INJ 2.5 MG/ML 10 ML AMP ONE (12:14)
[2023-06-04] MEDS ORDERED: fentaNYL citrate PF 100 MCG/2 ML VIAL ONE (12:14)
[2023-06-04] MEDS ORDERED: MIDAZOLAM HCL 1 MG/ML 2ML VIAL ONE (12:14)
[2023-06-04] MEDS ORDERED: NITROGLYCERIN/D5W 100MCG/ML 20ML SYR ONE (12:15)
--- NOTE | 2023-06-04 12:22 | Pre Anesthesia Assessment ---
Date of Service June 04, 2023 Pre Sedation Assessment Vital Signs Temp Pulse Pulse Resp BP BP Pulse Ox 06/04/23 11:33 100.6 F H 62 18 131/75 95 06/04/23 09:35 65 06/04/23 07:51 06/04/23 07:14 99.3 F 69 18 127/77 92 06/04/23 04:01 99.1 F 70 18 136/73 93 06/03/23 23:26 99.5 F 71 19 113/57 L 94 06/03/23 19:10 100.0 F H 72 18 129/68 96 06/03/23 16:55 100.0 F H 64 18 101/68 95 06/03/23 15:54 60 O2 Del Method 06/04/23 11:33 Room Air 06/04/23 09:35 06/04/23 07:51 Room Air 06/04/23 07:14 Room Air 06/04/23 04:01 Room Air 06/03/23 23:26 Room Air 06/03/23 19:10 Room Air 06/03/23 16:55 Room Air 06/03/23 15:54 Cardiovascular + regular rate Respiratory + respiratory effort normal Pre-Sedation Airway Assessment Smoking Status: Former smoker Hx Sleep Apnea: No Hx Difficult Intubation: No Short, Thick Neck: No Thyromental Distance: < 3.5 Finger Breadths Oral Cavity: + Dental Abnormalities Mallampati Class: III ASA: ASA3 Procedure Planning Contraindications for Sedation: none Current Medications Reviewed: Yes Notes The planned sedation has been discussed with the patient. Informed Consent was obtained. I have identified the patient, determined the appropriateness of sedation and have assessed the patient immediately prior to the procedure. All medicine(s) and interventions are by my order.
[2023-06-04] MEDS ORDERED: OPTIRAY 350 ONE (12:58)
--- NOTE | 2023-06-04 13:19 | Post Anesthesia Assessment ---
Date of Service June 04, 2023 Post Sedation Assessment Vital Signs Temp Pulse Pulse Resp BP BP Pulse Ox 06/04/23 11:33 100.6 F H 62 18 131/75 95 06/04/23 09:35 65 06/04/23 07:51 06/04/23 07:14 99.3 F 69 18 127/77 92 06/04/23 04:01 99.1 F 70 18 136/73 93 06/03/23 23:26 99.5 F 71 19 113/57 L 94 06/03/23 19:10 100.0 F H 72 18 129/68 96 06/03/23 16:55 100.0 F H 64 18 101/68 95 06/03/23 15:54 60 O2 Del Method 06/04/23 11:33 Room Air 06/04/23 09:35 06/04/23 07:51 Room Air 06/04/23 07:14 Room Air 06/04/23 04:01 Room Air 06/03/23 23:26 Room Air 06/03/23 19:10 Room Air 06/03/23 16:55 Room Air 06/03/23 15:54 Recovery Score Activity: Moves 4 extremities Respiration: Deep Breath/Cough Circulation: +/-20% PreAnes Value Consciousness: Fully Awake Oxygen Saturation: O2 needed for >90% Discharge Sedation Level of Care: Fast Track Phase II Post Sedation Plan On clinical assessment, the patient appears to have tolerated the sedation without complications. Patient is recovering as anticipated. Patient will continue to be monitored by nursing and may be discharged when sedation discharge criteria are met per below protocol. Upon Completions of procedure up to 15 minutes continue every 5 minute vital signs and the P.A.R. score; then discharge to a Phase I or Fast Track to Phase II per the following guidelines: * Discharge Patient to appropriate Phase II area if PAR is 8 or greater or return to pre- procedure baseline. The post - procedure orders will be as directed. * If PAR score is less than 8 or not return to pre-procedure baseline then patient will follow Phase I monitoring till PAR is reached for Phase II. The Phase I may be done in procedure room or may call to secure a Phase I area. * If naloxone or flumazenil are used for reversal, hold in Phase I for continued monitoring from when last reversal dose was given for a minimum of 60 minutes or longer pending the nurse and/or physician discretion of patient condition before discharge to Phase II. Please call the Sedation Physician to re-evaluate and complete post-note for discharge to Phase II area. Do NOT discharge from procedure sedation or Phase 1 until post- sedation evaluation note is complete by procedure /sedation MD Sedation Discharge Instructions to be given to the patient at discharge to home.
--- NOTE | 2023-06-04 13:23 | Post Operative Brief Note ---
Cardiology Brief Post Op Date of Surgery June 04, 2023 Pre & Post Diagnosis NSTEMI, Severe LV dysfunction Procedure Right radial artery access [facility] Coronary angiography Moderate sedation Supervisor [employer] Federico Baker MD Hydrogenation Operator [facility] Estimated Blood Loss 5 Findings See Below Severe multivessel disease 95+% heavily calcified mid LAD at bifurcation with large diagonal, distal vessel with CAMMY II flow and partially fills via left to left collaterals. 95% ostial dominant left circumflex 80% proximal small, nondominant RCA Recommend medical management for now in the setting of active COVID with plan for cardiac surgical evaluation for CABG at some point. Anesthesia Type RN Sedation Complications none Disposition Accompanied Patient To Recovery: No Disposition: PCU
--- NOTE | 2023-06-04 15:55 | Cardiac Catheterization ---
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 Cardiac Status Clinical evaluation leading to the procedure CAD Presenation: Non STEMI Anginal Classification: CCS IV Diagnostic Physicians Name: Federico Baker MD Closure Device Recommendations: CABG Cardiac Cath Procedure Full Procedure Date June 04, 2023 Pre-Procedure Diagnosis Pre-Procedure Diagnosis: Non STEMI and Cardiomyopathy AUC Score AUC Score: 7 Post-Procedure Diagnosis Post-Procedure Diagnosis: Severe CAD and Normal Intracardiac Pressures Procedure(s) Performed Procedure(s) Performed: Coronary Angiography and Left Heart Cath Hand Plate Stacker Federico Baker MD Ortho Nurse(s) Shannon Estimated Blood Loss Estimated Blood Loss: 10 Medication(s) Medication(s): Fentanyl, Heparin, Lidocaine 1%, Nicardipine, Nitroglycerin and Versed Summary of Findings Indication: NSTEMI new severe LV dysfunction with LAD wall motion abnormality Access: 6 Fr right radial artery Catheters: Bowers, EBU 3.5 guide, pigtail Findings: LM -calcified, normal caliber, 30% middistal segment disease LAD -medium caliber, heavily calcified, 30% ostial, 98% mid stenosis at bifurcation with D1. After bifurcation calcified mid segment with 60% stenosis. Distal vessel small and tapers to apex. Distal vessel with CAMMY I-II flow and partially fills via left to left collaterals. Remainder of medium D1 without significant disease. Circumflex -dominant, large caliber, 95% ostial, mid segment stent widely patent, distal vessel without significant disease. Left PLB, PDA without significant disease. Ramussmall caliber, proximal luminal irregularities RCA -small, nondominant, 80-90% proximal LVEDP -16 Arterial Closure: TR band Summary: 1. Severe multivessel coronary artery disease -98% heavily calcified mid LAD at bifurcation with medium D1. Distal LAD with CAMMY I-II flow and partially fills via left to left collaterals 95% ostial circumflex. Mid circumflex stent widely patent. 85% proximal small, nondominant RCA 30% calcified mid/distal left main 2. Normal intracardiac filling pressure Recommendations: Recommend referral for CABG evaluation. Timing of surgery complicated by active COVID infection. For now continue medical management. Heparin infusion for 48 hours post IA. Hemodynamics Rest Ao:: 88/41/59 Final Ao: 104/47/69 LV: 100/16 Recommendations Recommendations: CABG Specimens Specimens: None Radiation Exposure (mGy) 1188 Contrast (mls) 45 Anesthesia Moderate [id number] Procedural Complication(s) None Disposition PCU I attest to the content of the Intraoperative Record and any orders documented therein. Any exceptions are noted below. [facility] Card Cath Procedure Codes Cardiac Catheterization Procedure 1: Cardiovascular Cath Procedures: 00423 Coronaries and LHC (+/-LV) Moderate Sedation Procedure 1: Sedation/Anesthesia: 87523 Mod Sedation by the same physician;Init15 Min Child Age 5 & Up PG Care Time/CCT Total # of Minutes Spent Total Time Spent with Patient: Total time spent is greater than 50% in coordination of care (as documented) at patient's floor/unit and/or counseling patient:
--- NOTE | 2023-06-04 18:30 | Hospitalist Progress Note ---
Date of Service June 04, 2023 Assessment & Plan (1) CAD (coronary artery disease): Plan: With NSTEMI prior to admissionseems the event probably happened before admission given that he has been asymptomatic since being here. Now status post cathshowing triple-vessel disease requiring CABG. continue heparin drip for now, continue med management secondary risk reduction. Will require tertiary for CABG in the near futurethe difficult situation will be whether or not/how much his current COVID-19 slows down getting him to CABG. Tomorrow we will need to discuss with [facility] surgery whether we can still facilitate inpatient inpatient transfer versus facilitating close outpatient follow-up (2) COVID-19: Plan: Seems to be pretty minimally symptomatic, but still having some degree of fevers. No hypoxia, no real indication for specific treatment like remdesivir or corticosteroids. (3) PAD (peripheral artery disease): Plan: Recently admitted for this, med management and secondary risk reduction (4) DVT prophylaxis: Plan: Heparin drip (5) Discharge planning issues: Plan: Given his three-vessel disease, normally this would probably be a situation where he would be immediately transferred for considerations for CABG, given his COVID-19, tomorrow we will need to discuss with [facility] if they would still be able to take him in transfer, or if he will need to have some period of time before they could do surgery. Admission and Anticipated Discharge Date Admission Date: June 03, 2023 Subjective Physically feeling okay, just feeling somewhat overwhelmed at the prospect of bypass surgery. Extensive discussion with patient and , answered all questions the best my ability. 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 He eats healthy now, notes that previously he did not so much, and he no longer smokeshaving quit about 20 years ago. Review of Systems Review of Systems: All systems reviewed & are unremarkable except as noted in HPI & below Physical Exam Physical Exam: In general he is awake and alert pleasant no distress. HEENT normocephalic atraumatic mucous membranes moist. Breathing unlabored no accessory muscle use good effort. Skin shows no rashes no pallor or icterus. Neuro without focal deficits Results & Data Results & Data Vital Signs (Past 12 Hours) Vital Signs Temp Pulse Pulse Resp BP BP Pulse Ox 06/04/23 16:34 98.8 F 67 18 114/63 95 06/04/23 15:52 76 06/04/23 15:30 121/70 94 06/04/23 15:00 63 18 111/68 93 06/04/23 14:30 60 16 107/65 93 06/04/23 14:15 60 16 114/61 93 06/04/23 14:02 66 18 119/66 94 06/04/23 13:45 55 L 16 122/66 93 06/04/23 13:28 63 16 112/67 95 06/04/23 11:33 100.6 F H 62 18 131/75 95 06/04/23 09:35 65 06/04/23 07:51 06/04/23 07:14 99.3 F 69 18 127/77 92 O2 Del Method 06/04/23 16:34 Room Air 06/04/23 15:52 06/04/23 15:30 Room Air 06/04/23 15:00 Room Air 06/04/23 14:30 Room Air 06/04/23 14:15 Room Air 06/04/23 14:02 Room Air 06/04/23 13:45 Room Air 06/04/23 13:28 Room Air 06/04/23 11:33 Room Air 06/04/23 09:35 06/04/23 07:51 Room Air 06/04/23 07:14 Room Air PG Care Time/CCT Total # of Minutes Spent Total Time Spent with Patient: Total time spent is greater than 50% in coordination of care (as documented) at patient's floor/unit and/or counseling patient: Coding Level of Care Code 67831 SUB INP/OBS CARE 3/50MIN Diagnoses CAD (coronary artery disease) I25.10 COVID-19 U07.1 PAD (peripheral artery disease) I73.9 DVT prophylaxis Z29.9 Discharge planning issues Z02.9
[2023-06-04] MEDS ORDERED: LORazepam 0.5 MG TAB PO STA (19:38)
[2023-06-04] MEDS ORDERED: ATORVASTATIN 40 MG TAB PO SCH (21:00)
[2023-06-05] MEDS: LACTATED RINGER'S 1,000 ML IV SCH (02:44)
[2023-06-05 04:50] LABS: Chol HDL Ratio 2.8 (0-5)
[2023-06-05] MEDS: HEPARIN SODIUM/DEXTROSE 25,000 UNITS/500 ML BAG IV SCH (05:23)
[2023-06-05 05:24] LABS: Partial Thromboplastin Ratio 2.8
[2023-06-05 07:18] LABS: Estimated Average Glucose 114 mg/dl; Hemoglobin A1C 5.6 % (4.5-5.6)
[2023-06-05] MEDS: DOCUSATE SODIUM 100 MG CAP PO SCH ×2 (08:37→20:37)
[2023-06-05] MEDS: lisinopril 40 MG TAB PO SCH (08:37)
[2023-06-05] MEDS: PANTOprazole 40 MG TAB PO SCH (08:38)
[2023-06-05] MEDS: NIFEdipine EXTENDED REL 30 MG TABCR PO SCH (08:38)
[2023-06-05] MEDS: METOPROLOL SUCC 50MG EXT REL TAB PO SCH (08:38)
[2023-06-05] MEDS ORDERED: CLOPIDOGREL BISULFATE 75 MG TAB PO SCH (09:00)
[2023-06-05] MEDS: CHOLECALCIFEROL 5,000 UNITS 125 MCG TAB PO SCH (09:19)
[2023-06-05 14:03] LABS: Partial Thromboplastin Ratio 2.7
[2023-06-05 14:06] LABS: Partial Thromboplastin Time 75.5 Seconds (21.0-31.0)
--- NOTE | 2023-06-05 16:57 | Hospitalist Progress Note ---
Date of Service June 05, 2023 Assessment & Plan (1) CAD (coronary artery disease): Plan: With NSTEMI prior to admissionseems the event probably happened before admission given that he has been asymptomatic since being here. Now status post cathshowing triple-vessel disease requiring CABG. currently on heparin drip and guideline directed medical therapy. Cardiology consultation and recommendations appreciated. Cardiology spoke to [facility] cardiothoracic surgery and the decision has been made to pursue CABG at a later date due to current COVID positivity. Telemetry. Sublingual nitroglycerin as needed. Continue current medical management. (2) COVID-19: Plan: No significant symptoms. Vitamin D has been started. No hypoxia (3) PAD (peripheral artery disease): Plan: Stable. Continue current medical management (4) DVT prophylaxis: Plan: Currently on heparin drip Plan Hopefully home tomorrow, June 06 Admission and Anticipated Discharge Date Admission Date: June 03, 2023 Subjective Alert and oriented. No distress. No recurrent chest pain. is at the bedside. Cardiology has spoken to the patient and apparently also spoke to cardiothoracic surgery at [facility] and the decision has been made to pursue coronary artery bypass grafting at a later date due to current COVID positivity. Review of Systems 2 Review of Systems: Constitutional-no fever or chills ENT-no blurred vision, no double vision, no epistaxis, no sore throat Respiratory-no cough, no wheezing, no shortness of breath Cardiac-no palpitations, no chest pain, no syncope GI-no nausea, vomiting, diarrhea, melena, hematochezia -no urinary retention, no urinary incontinence, no dysuria, no hematuria Musculoskeletal-no joint pain, no muscle tenderness Skin-no bruising, no rashes, no pruritus Neuro-no isolated weakness, no paresthesia, no weakness Psych-no depression, no anxiety Physical Exam 2 Physical Exam: General-alert and oriented x3, no fevers, no chills HEENT-head atraumatic and normocephalic, pupils equal and reactive to light, extraocular muscles intact Neck-no lymphadenopathy or thyromegaly, trachea midline Chest-clear to auscultation percussion. No rales wheezing or rhonchi Cardiac-regular rate and rhythm, normal S1 and S2 Abdomen-normal bowel sounds, nontender, no hepatosplenomegaly Extremities-no cyanosis, clubbing, or edema Neuro-cranial nerves II through XII intact, motor and sensory function within normal limits, strength symmetrical, no focal deficits Psych-normal affect, normal mood Results & Data Results & Data Vital Signs (Past 12 Hours) Vital Signs Temp Pulse Pulse Pulse Resp BP Pulse Ox 06/05/23 16:30 37.2 C 66 18 116/71 95 06/05/23 11:44 37.1 C 64 17 130/79 96 06/05/23 09:00 53 L 06/05/23 08:36 06/05/23 07:12 37.2 C 62 19 158/82 H 94 O2 Del Method 06/05/23 16:30 Room Air 06/05/23 11:44 Room Air 06/05/23 09:00 06/05/23 08:36 Room Air 06/05/23 07:12 Room Air Laboratory Results 06/04/23 04:21 06/04/23 04:21 PG Care Time/CCT Total # of Minutes Spent Total Time Spent with Patient: Total time spent is greater than 50% in coordination of care (as documented) at patient's floor/unit and/or counseling patient: Coding Level of Care Code 86810 SUB INP/OBS CARE 3/50MIN Diagnoses CAD (coronary artery disease) I25.10 COVID-19 U07.1 PAD (peripheral artery disease) I73.9 DVT prophylaxis Z29.9
--- NOTE | 2023-06-05 17:03 | Cardiology Progress Note ---
Date of Service June 05, 2023 Assessment & Plan (1) CAD (coronary artery disease): Plan: Multivessel CADsubtotal mid LAD occlusion at bifurcation with diagonal, 95% ostial dominant circumflex, severe proximal nondominant RCA 2. Ischemic cardiomyopathyEF 30 to 35%, LAD wall motion abnormality 3. PAD Post endarterectomy and patch repair of left AIR HOLE DRILLER stenosis post closure device Prior bilateral SFA endovascular intervention 4. COVID-19 infection 5. Hypertension 6. Anemia 7. Hyponatremia Patient remains chest pain-free Hemodynamically and electrically stable No signs of heart failure on exam. Normal LV filling pressure on catheterization yesterday Afebrile over last 24 hours Discussed current situation with [facility] cardiac surgery (Dr. Fuller). As patient currently asymptomatic and stable from a cardiac standpoint surgery [facility] outpatient workup/surgery after he recovers from COVID. Discussed this with patient and and they are okay with this plan. Can stop heparin this afternoon Discontinue clopidogrel Resume aspirin Continue Toprol-XL, continue current lisinopril (will hold off on entresto in the setting of acute VT) Start spironolactone. Can stop nifedipine and hydrochlorothiazide. Previously intolerant to higher doses of atorvastatin. Will switch to rosuvastatin. Contact vascular surgery about staple removal (previously scheduled for ). If stable overnight potentially home tomorrow. Follow-up with cardiac surgery will be arranged in 2 weeks. Admission and Anticipated Discharge Date Admission Date: June 03, 2023 Subjective Today denies any chest pain. Feels like COVID symptoms easing up slightly. [place] more normal/less short of breath walking to bathroom today. No palpitations. No presyncope. Telemetry reviewno events. Review of Systems Review of Systems: All systems reviewed & are unremarkable except as noted in HPI & below Physical Exam Physical Exam: General: Comfortable HEENT: Sclerae anicteric Lungs: Clear anteriorly Cardiac: Regular rate Vascular: Right radial artery access site with no ecchymosis, hematoma. Distal pulse and sensation intact. Left groin incision intact with no erythema/induration, jasmin in place Abdomen: Soft, nontender Extremities: Well perfused, no peripheral edema Neuro: Nonfocal Psych: Alert orient x3, normal affect and mood Results & Data Vital Signs (Past 12 Hours) Vital Signs Temp Pulse Pulse Pulse Resp BP Pulse Ox 06/05/23 16:30 99.0 F 66 18 116/71 95 06/05/23 11:44 98.8 F 64 17 130/79 96 06/05/23 09:00 53 L 06/05/23 08:36 06/05/23 07:12 99.0 F 62 19 158/82 H 94 O2 Del Method 06/05/23 16:30 Room Air 06/05/23 11:44 Room Air 06/05/23 09:00 06/05/23 08:36 Room Air 06/05/23 07:12 Room Air PG Care Time/CCT Total # of Minutes Spent Total Time Spent with Patient: Total time spent is greater than 50% in coordination of care (as documented) at patient's floor/unit and/or counseling patient: Coding Level of Care Code 65726 SUB INP/OBS CARE 3/50MIN Diagnoses CAD (coronary artery disease) I25.10
[2023-06-05] MEDS ORDERED: SPIRONOLACTONE 25 MG TAB PO ONE (17:07)
[2023-06-05 20:55] LABS: Partial Thromboplastin Ratio 1.3; Partial Thromboplastin Time 35.6 Seconds (21.0-31.0)
[2023-06-06 08:01] LABS: Basophils # (auto) 0.01 K/uL (0.00-0.20); Basophils % (auto) 0.3 %; Eosinophils # (auto) 0.02 K/uL (0.00-0.50); Eosinophils % (auto) 0.6 %; Hematocrit (blood only) 35.8 % (42.0-52.0); Immature Granulocytes # (auto) 0.03 K/uL (0.01-0.20); Immature Granulocytes % (auto) 0.8 %; Lymphocytes # (auto) 1.59 K/uL (1.20-3.40); Lymphocytes % (auto) 44.8 %; Mean Corpuscular Hemoglobin 32.2 pg (25.0-34.0); Mean Corpuscular Hgb Conc 33.5 g/dL (32.0-36.0); Mean Platelet Volume 10.3 fL (9.4-12.4); Monocytes # (auto) 0.35 K/uL (0.11-0.59); Monocytes % (auto) 9.9 %; Neutrophils # (auto) 1.55 K/uL (1.40-6.50); Neutrophils % (auto) 43.6 %; Platelet Count 265 K/uL (130-400); RDW Coefficient of Variation 14.4 % (11.5-14.5); RDW Standard Deviation 50.9 fL (36.4-46.3); Red Blood Count 3.73 M/uL (4.70-6.10); White Blood Count 3.55 K/ul (4.8-10.8)
[2023-06-06] MEDS: lisinopril 40 MG TAB PO SCH (08:20)
[2023-06-06] MEDS: ASPIRIN 81 MG ECTAB PO SCH (08:20)
[2023-06-06] MEDS: PANTOprazole 40 MG TAB PO SCH (08:20)
[2023-06-06] MEDS: METOPROLOL SUCC 50MG EXT REL TAB PO SCH (08:20)
[2023-06-06] MEDS: DOCUSATE SODIUM 100 MG CAP PO SCH (08:20)
[2023-06-06] MEDS: CHOLECALCIFEROL 5,000 UNITS 125 MCG TAB PO SCH (08:20)
[2023-06-06 08:23] LABS: BUN Creatinine Ratio 9.9 (10-20); Calcium 8.4 mg/dl (8.6-10.3); Creatinine Clr Calc Pharmacy 89.1 ml/min; Est GFR (African American) 102.2 ml/min; Est GFR (Non-African American) 88.2 ml/min; Potassium 4.1 mmol/L (3.5-5.1)
[2023-06-06] MEDS ORDERED: ROSUVASTATIN CALCIUM 20 MG TAB PO SCH (09:00)
--- NOTE | 2023-06-06 13:19 | Discharge Summary ---
Date of Service June 06, 2023 Admission HPI Per Admitting Provider Jericho is a 72-year-old male with past medical history of peripheral artery disease s/p endarterectomy and patch repair of left [employer] 05/23/2023, previously stable CAD with history of 1 BMS 2002 echo 2021 with PEF and stable from prior, without angina with baseline T wave abnormality in aVL and poor R wave progression MR. Romero is seen at the beside with his present. He reports yesterday was working on his refrigerator when he developed a lower l sided chest discomfort worse with coughing, fatigue, low energy, and a feeling of heart pounding/palpitations. Chest pain at worst was 'not real bad, its a needle like feeling only for 10-15 seconds and worse when I cough' but goes away inbetween coughing. L leg swith swelling du eto vascular disease and procedure, this is actually improved compared to last week. His R leg has no swelling. Shortness of breath and easy fatigue x1-2 days. Denies orthopnea. Has had fevers at home 100.5 last night. Took 1 tylenol at 430am, 500mg Has not taking any of home normal medications today Still taking hctz Denies history of problems with low sodium in the past, but notes had one episode recently where it was ~132 for the first time Drinks beer, does salt his food. NOrmalized a few weeks later with adding a little salt to diet Last 2 days he reports 'I have been peeing like no tomorrow.' Piercy dehydrated yesterday, feels improved today. Drank 1L bottle of tonic water this morning just because he felt so dry and out of it. Also drank 2x 16oz bottles of water + gatorade last night NO recent medication change Current on asa/plaavis. Has discussed eliquis/xarelto with Dr. Baker, but is recommended to hold off on that for now. had a f/u US of his legs next week. Has had lasix allergy listed due to 'working too well, dehydrated me like crazy." No tobacco. Quit 20 years ago. EtoH daily 1-2 beers. Has gone several days without alcohol this past month and no withdrawal sx. Allergic to tramadol, gets confused and 'weird' with oxycodone. Full Code Principal Diagnosis Non-ST elevation RI, COVID positivity by nasal swab Discharge Exam General-alert and oriented x3, no fevers, no chills HEENT-head atraumatic and normocephalic, pupils equal and reactive to light, extraocular muscles intact Neck-no lymphadenopathy or thyromegaly, trachea midline Chest-clear to auscultation percussion. No rales wheezing or rhonchi Cardiac-regular rate and rhythm, normal S1 and S2 Abdomen-normal bowel sounds, nontender, no hepatosplenomegaly Extremities-no cyanosis, clubbing, or edema Neuro-cranial nerves II through XII intact, motor and sensory function within normal limits, strength symmetrical, no focal deficits Psych-normal affect, normal mood Discharge Data Allergies Allergy/AdvReac Type Severity Reaction Status Date / Time BRETT Inhibitors Allergy Unknown Unknown Verified 05/22/23 09:53 bisoprolol Allergy Unknown Unknown Verified 05/22/23 09:53 hydrochlorothiazide Allergy Unknown Unknown Verified 05/22/23 09:53 Sulfa (Sulfonamide Allergy Unknown Unknown Verified 05/22/23 09:53 Antibiotics) furosemide [From Lasix] Allergy Unknown Verified 05/22/23 09:53 ezetimibe [From Zetia] AdvReac Intermediate Unknown Verified 05/22/23 09:53 tramadol AdvReac Intermediate Nausea and Unverified 06/03/23 09:14 vomiting fosinopril AdvReac Unknown GI UPSET Verified 05/22/23 09:53 oxycodone AdvReac Unknown FEELS Verified 05/22/23 09:53 STRANGE MONOPRIL-GI Allergy Unknown Unknown Uncoded 05/22/23 09:53 UPSET;OXYCODONE-"FEELS STRANGE" THIAZIDE Allergy Unknown Unknown Uncoded 05/22/23 09:53 Consultations 06/03/23 08:58 ED Decision to Admit Stat 06/03/23 10:08 Consult Cardiology Routine Procedures Performed Operation Date: 06/04/23 12:15 Actual Procedures p Cineradiography w/Routine Exam - Federico Baker MD s Cath, Left with Cors and Vent - Federico Baker MD Ordered Studies 06/03/23 06:43 CT angio chest PE protocol Stat 06/04/23 12:21 CL Cath Imgs for PACS use only Routine Hospital Course (1) CAD (coronary artery disease): With NSTEMI prior to admissionseems the event probably happened before admission given that he has been asymptomatic since being here. Now status post cathshowing triple-vessel disease requiring CABG. treated while hospitalized with heparin drip and guideline directed medical therapy. Cardiology con sultation and recommendations appreciated. Cardiology spoke to [facility] [place] and the decision has been made to pursue CABG at a later date due to current COVID positivity. Telemetry while hospitalized sublingual nitroglycerin as needed. (2) COVID-19: No significant symptoms. Vitamin D has been started. No hypoxia (3) PAD (peripheral artery disease): Stable. Continue current medical management (4) DVT prophylaxis: Heparin drip while hospitalized Plan Home today, June 06 Total Time Total Time Spent Total Time Spent (In Minutes): 45 minutes Discharge Plan Discharge Items Patient Disposition: Home - Self-Care Reason For Visit: MYOCARDITIS Discharge Diagnosis: Non-ST elevation RI, COVID positivity by nasal swab Activity: Per Instructions section Activity Comment: Avoid overexertion Non-emergency contact: Primary Care Provider and Elevator Technician Call non-emergency contact if: you have any medication questions Follow-up/Referrals: Leo Ahmadi MD [Primary Care Provider] - Diet: Regular Addtl Attending Provider Instructions: Take all medications as directed. Several have been changed. Use nitroglycerin under your tongue for any recurrent chest discomfort as directed. Pending Studies at Discharge: No Stand-Alone Forms: [facility], Smoking Cessation Medications and DC Order Prescriptions: New metoprolol succinate 50 mg Tablet Extended Release 24 Hr 50 mg PO QAM Qty: 30 0RF aspirin 81 mg Tablet,Delayed Release (Dr/Ec) 81 mg PO DAILY Qty: 1 0RF nitroglycerin [Nitrostat] 0.4 mg Tablet, Sublingual 0.4 mg sublingual Q5M PRN (Reason: chest pain) Qty: 25 0RF rosuvastatin [Crestor] 20 mg Tablet 20 mg PO QAM Qty: 30 0RF cholecalciferol (vitamin D3) 125 mcg (5,000 unit) Tablet 5,000 unit PO QAM Qty: 0 0RF Continued alfuzosin 10 mg tablet extended release 24 hr See Rx Instructions .ROUTE .COMPLEX Qty: 90 3RF Dose Instruction: TAKE 1 TABLET BY MOUTH EVERY DAY AFTER SAME MEAL EACH DAY Rx Instructions: TAKE 1 TABLET BY MOUTH EVERY DAY AFTER SAME MEAL EACH DAY omeprazole 20 mg capsule,delayed release(DR/EC) 20 mg PO BID multivitamin [Daily Multiple] tablet 1 tab PO DAILY Ca-D3-mag [id number]-otp-gabriele-bor [Calcium 600-D3 Plus (mag-zinc)] 600 mg calcium- 800 unit-50 mg tablet 1 tab PO DAILY lisinopril 40 mg tablet 40 mg PO DAILY Ocuvite Adult 50 Plus 250 mg (90 mg-160 mg) capsule 1 cap PO DAILY coenzyme Q10 100 mg capsule 100 mg PO BID flaxseed oil 1,000 mg Capsule 1,000 mg PO DAILY Rx Instructions: administer with a meal Glucosamine-Marcelo 1500/1200 2 tabs PO DAILY clopidogrel 75 mg tablet 75 mg PO DAILY docusate sodium 100 mg Capsule 100 mg PO BID 30 Days Qty: 60 0RF Discontinued aspirin 81 mg tablet 81 mg PO DAILY nifedipine 90 mg tablet extended release 24hr 90 mg PO DAILY hydrochlorothiazide 12.5 mg tablet 12.5 mg PO DAILY atenolol 50 mg tablet 50 mg PO DAILY Qty: 90 3RF atorvastatin 10 mg tablet 5 mg PO QPM Discharge Orders: Discharge Order (Routine); Ordered 06/06/23 Ordered By: Naren Herrera Admission Data Admit Date/Time: 06/03/23 08:58 Attending Provider: Naren Herrera Admit Provider: Lopez Grant Primary Care Provider: Leo Ahmadi Other Providers: Lopez Grant; Jb Morales Coding Level of Care Code 99197 INP/OBS DISCH >30 MIN Diagnoses CAD (coronary artery disease) I25.10 COVID-19 U07.1 PAD (peripheral artery disease) I73.9 DVT prophylaxis Z29.9
== END 2023-06-06 16:41 | disposition home or self-care (01) | DRG 280 ==
LOC: ED 05:10 → 2S 08:58 → SUATTDRO 08:58 → 2S 09:17